=== PATIENT | female | born 1930 | race Caucasian/White ===

== ENCOUNTER 2016-12-15 08:06 | Outpatient (CLI) | payer MEDICARE ==
[2016-12-15 08:29] LABS: #Basophils 0.1 thou/uL (0.0-0.2); #Eosinphils 0.3 thou/uL (0.0-0.7); #Lymphocytes 2.4 thou/uL (1.20-3.40); #Monocytes 0.4 thou/uL (0.11-0.59); %Basophils 1.3 % (0.0-1.0); %Eosinophils 5.7 % (0.0-10.0); %Lymphocytes 47.2 % (21.0-51.0); %Neutrophils 38.9 % (42.0-75.0); Hemoglobin 13.4 g/dL (12.0-16.0); Mean Corpuscular HGB CONC 32.9 g/dL (32.0-36.0); Mean Corpuscular Hemoglobin 29.6 pg (27.0-31.0); Mean Corpuscular Volume 90.1 fl (81.0-99.0); Mean Platelet Volume 6.8 fL (7.4-10.4); Platelet Count 208 thou/uL (130-400); RBC Distribution Width 11.9 % (11.5-14.5); Red Blood Cell (RBC) Count 4.53 mill/uL (4.20-5.40); White Blood Cell (WBC) Count 5.1 thou/uL (4.8-10.8)
[2016-12-15 08:40] LABS: Hemoglobin A1c 5.4 % (4.0-6.0)
[2016-12-15 08:57] LABS: ALT (SGPT) 7 U/L (0-55); AST (SGOT) 13 U/L (5-34); Albumin 4.1 g/dL (3.4-4.8); Alkaline Phosphatase 104 U/L (40-150); Anion Gap 13 mmol/L (10-20); BUN (Urea Nitrogen) 15 mg/dL (9.8-20.1); Bilirubin, Direct 0.3 mg/dL (0.1-0.3); Bilirubin, Total 0.8 mg/dL (0.2-1.2); Calc. Creatinine Clearance 0 mL/min (70-130); Calcium 9.7 mg/dL (7.8-10.44); Carbon Dioxide 28 mmol/L (23-31); Cardiac Risk 3.6 (Less than 4.5); Chloride 106 mmol/L (98-107); Cholesterol 207 mg/dL (< 200 Desired); Estimated GFR-MDRD 69; Glucose 100 mg/dL (83-110); HDL Cholesterol 57 mg/dL (>60 Neg Risk); LDL Cholesterol, Calculated 133 mg/dL; Potassium 4.2 mmol/L (3.5-5.1); Protein, Total 7.1 g/dL (5.8-8.1); Sodium 143 mmol/L (136-145); Triglycerides 86 mg/dL (Less than 150)
== END 2016-12-15 08:07 ==
LOC: MADLABBHPM 08:06
PROVIDERS: ATTEND Family Medicine
DX: E11.9 Type 2 diabetes mellitus without complications (principal)
CPT/HCPCS: 36415; 80048; 80061; 80076; 83036; 85025

== ENCOUNTER 2017-03-24 07:59 | Outpatient (CLI) | payer MEDICARE ==
[2017-03-24 08:45] LABS: ALT (SGPT) 8 U/L (8-55); AST (SGOT) 14 U/L (5-34); Albumin 3.7 g/dL (3.4-4.8); Alkaline Phosphatase 96 U/L (40-150); Anion Gap 16 mmol/L (10-20); BUN (Urea Nitrogen) 18 mg/dL (9.8-20.1); Bilirubin, Direct 0.3 mg/dL (0.1-0.3); Bilirubin, Total 0.8 mg/dL (0.2-1.2); Calc. Creatinine Clearance 0 mL/min (70-130); Calcium 9.2 mg/dL (7.8-10.44); Carbon Dioxide 23 mmol/L (23-31); Cardiac Risk 3.9 (Less than 4.5); Chloride 106 mmol/L (98-107); Cholesterol 199 mg/dl (< 200 Desired); Estimated GFR-MDRD 68; Glucose 99 mg/dL (83-110); HDL Cholesterol 51 mg/dL (>60 Neg Risk); LDL Cholesterol, Calculated 129 mg/dL; Protein, Total 6.7 g/dL (6.0-8.3); Sodium 141 mmol/L (136-145); Triglycerides 96 mg/dL (Less than 150)
== END 2017-03-24 08:00 | disposition home or self-care (01) ==
LOC: MADLABBHPM 07:59
PROVIDERS: ATTEND Family Medicine
DX: I10 Essential (primary) hypertension (principal)
CPT/HCPCS: 36415; 80048; 80061; 80076

== ENCOUNTER 2017-10-11 09:03 | Emergency (ER) | payer MEDICARE ==
--- NOTE | 2017-10-11 10:23 | RAD ---
EXAM: LEFT RIBS 2 VIEWS: HISTORY: Left-sided pain, due to fall several days ago. History of Parkinson's disease. COMPARISON: None. FINDINGS: Mild bone demineralization. No fracture. No cortical irregularity or periosteal reaction. IMPRESSION: No fracture. POS: [facility]
--- NOTE | 2017-10-11 10:24 | RAD ---
CHEST 1 VIEW: HISTORY: Pain. Fall several days ago. COMPARISON: None. FINDINGS: Normal cardiac silhouette. The pulmonary vessels and hilum are normal. Costophrenic angles are sanchez r. No consolidation or mass. No pneumothorax or osseous abnormalities. IMPRESSION: No acute cardiopulmonary process. POS: [facility]
== END 2017-10-11 10:10 | disposition home or self-care (01) ==
LOC: MADERS 09:03
DX: R07.89 Other chest pain (principal); I10 Essential (primary) hypertension; E11.9 Type 2 diabetes mellitus without complications; E78.5 Hyperlipidemia, unspecified; Z79.82 Long term (current) use of aspirin; Z79.899 Other long term (current) drug therapy
CPT/HCPCS: 71045

== ENCOUNTER 2018-02-23 11:27 | Outpatient (CLI) | payer MEDICARE ==
--- NOTE | 2018-02-23 13:34 | RAD ---
RIGHT HIP 2 VIEWS: Date: 02/23/18 HISTORY: Fall. Right hip pain. Prior fracture. FINDINGS: Compression nail and short lakesha transfix the right femoral neck, in anatomic alignment. No perihardwar e lucency. Moderate degenerative changes. No acute fracture or dislocation. IMPRESSION: Internal fixation right hip without evidence of hardware complication or acute osseous abnormalities. POS: [facility]
== END 2018-02-23 11:28 | disposition home or self-care (01) ==
LOC: MADRAD 11:27
PROVIDERS: ATTEND Family Medicine
DX: M25.551 Pain in right hip (principal); Z98.890 Other specified postprocedural states

== ENCOUNTER 2018-06-21 20:33 | Emergency (ER) | payer MEDICARE ==
[~2018-06-21 20:33] MED LIST: Sodium Chloride 0.9% 500 ML BAG ONE
[2018-06-21] MEDS ORDERED: Ondansetron HCl/PF 4 MG/2 ML Vial ONE (21:08)
[2018-06-21 21:28] LABS: Bilirubin Negative (Negative); Blood, Urine Trace (Negative); Clarity Clear (Clear); Glucose, Urine (Dipstick) Negative (Negative); Leukocyte Small (Negative); Nitrite Negative (Negative); Protein, Urine (Dipstick) Negative (Neg-Trace); Specific Gravity, Urine 1.025 (1.005-1.030); Urobilinogen 0.2 mg/dL (0.2-1.0); pH, Urine 5.5 (5.0-9.0)
[2018-06-21 21:34] LABS: #Eosinphils 0.1 thou/uL (0.0-0.7); #Lymphocytes 1.7 thou/uL (1.20-3.40); #Monocytes 0.5 thou/uL (0.11-0.59); #Neutrophils 4.7 thou/uL (1.40-6.50); %Basophils 0.5 % (0.0-1.0); %Eosinophils 1.3 % (0.0-10.0); %Lymphocytes 24.3 % (21.0-51.0); %Monocytes 7.7 % (0.0-10.0); %Neutrophils 66.2 % (42.0-75.0); Hemoglobin 12.7 g/dL (12.0-16.0); Mean Corpuscular HGB CONC 32.9 g/dL (32.0-36.0); Mean Corpuscular Volume 91.1 fL (78.0-98.0); Mean Platelet Volume 6.4 fL (7.4-10.4); Platelet Count 203 thou/uL (130-400); RBC Distribution Width 11.1 % (11.5-14.5); Red Blood Cell (RBC) Count 4.24 mill/uL (4.20-5.40); White Blood Cell (WBC) Count 7.1 thou/uL (4.8-10.8)
[2018-06-21 21:37] LABS: Bacteria/HPF 1+ HPF (None Seen)
[2018-06-21 21:52] LABS: ALT (SGPT) Less than 7 U/L (8-55); AST (SGOT) 12 U/L (5-34); Albumin 4.1 g/dL (3.4-4.8); Alkaline Phosphatase 95 U/L (40-150); Anion Gap 15 mmol/L (10-20); BUN (Urea Nitrogen) 18 mg/dL (9.8-20.1); Bilirubin, Total 0.6 mg/dL (0.2-1.2); Calc. Creatinine Clearance 0 mL/min (70-130); Calcium 9.5 mg/dL (7.8-10.44); Carbon Dioxide 24 mmol/L (23-31); Chloride 107 mmol/L (98-107); Estimated GFR-MDRD 63; Globulin 3.1 g/dL (2.4-3.5); Glucose 155 mg/dL (83-110); Lipase 12 U/L (8-78); Potassium 3.9 mmol/L (3.5-5.1); Protein, Total 7.2 g/dL (6.0-8.3); Sodium 142 mmol/L (136-145)
[2018-06-21] MEDS ORDERED: Cephalexin 500 MG CAP ONE (22:14)
== END 2018-06-21 22:43 | disposition home or self-care (01) ==
LOC: MADERS 20:33
DX: E86.0 Dehydration (principal); I10 Essential (primary) hypertension; G20 Parkinson's disease; E11.9 Type 2 diabetes mellitus without complications; E78.5 Hyperlipidemia, unspecified; Z79.82 Long term (current) use of aspirin; Z79.891 Long term (current) use of opiate analgesic; Z79.899 Other long term (current) drug therapy
CPT/HCPCS: 80053; 81003; 81015; 83690; 85025; 93005; 96361; 96374; J2405; J7050

== ENCOUNTER 2018-06-27 04:30 | Emergency (ER) | payer MEDICARE ==
[2018-06-27] MEDS ORDERED: Dexamethasone 4 MG TAB ONE (06:26)
--- NOTE | 2018-06-27 08:33 | RAD ---
PORTABLE CHEST: History: Cough. FINDINGS: Lungs appear clear. No evidence of infiltrate or vascular congestion. Heart and mediastinum unremarka ble. IMPRESSION: No acute abnormality. POS: [facility]
== END 2018-06-27 06:35 | disposition home or self-care (01) ==
LOC: MADERS 04:30
DX: J40 Bronchitis, not specified as acute or chronic (principal); G20 Parkinson's disease; E11.9 Type 2 diabetes mellitus without complications; E78.5 Hyperlipidemia, unspecified; I10 Essential (primary) hypertension
CPT/HCPCS: 71045; 93005; J8540

== ENCOUNTER 2018-07-04 08:50 | Emergency (ER) | payer MEDICARE ==
[2018-07-04 09:32] LABS: #Basophils 0.1 thou/uL (0.0-0.2); #Eosinphils 0.2 thou/uL (0.0-0.7); #Lymphocytes 2.1 thou/uL (1.20-3.40); #Monocytes 0.5 thou/uL (0.11-0.59); %Eosinophils 2.3 % (0.0-10.0); %Lymphocytes 26.3 % (21.0-51.0); %Monocytes 6.8 % (0.0-10.0); %Neutrophils 63.7 % (42.0-75.0); Hemoglobin 12.6 g/dL (12.0-16.0); Mean Corpuscular HGB CONC 33.1 g/dL (32.0-36.0); Mean Corpuscular Volume 90.7 fL (78.0-98.0); Mean Platelet Volume 6.3 fL (7.4-10.4); Platelet Count 286 thou/uL (130-400); RBC Distribution Width 11.4 % (11.5-14.5); Red Blood Cell (RBC) Count 4.19 mill/uL (4.20-5.40); White Blood Cell (WBC) Count 7.9 thou/uL (4.8-10.8)
[2018-07-04 09:43] LABS: Bilirubin Negative (Negative); Blood, Urine Negative (Negative); Clarity Clear (Clear); Glucose, Urine (Dipstick) Negative (Negative); Leukocyte Negative (Negative); Nitrite Negative (Negative); Protein, Urine (Dipstick) Negative (Neg-Trace); Specific Gravity, Urine 1.025 (1.005-1.030); Urobilinogen 0.2 mg/dL (0.2-1.0)
[2018-07-04 09:44] LABS: ALT (SGPT) Less than 7 U/L (8-55); AST (SGOT) 13 U/L (5-34); Albumin 3.9 g/dL (3.4-4.8); Alkaline Phosphatase 100 U/L (40-150); Anion Gap 15 mmol/L (10-20); BUN (Urea Nitrogen) 19 mg/dL (9.8-20.1); Bilirubin, Total 0.6 mg/dL (0.2-1.2); Calc. Creatinine Clearance 0 mL/min (70-130); Calcium 9.2 mg/dL (7.8-10.44); Carbon Dioxide 22 mmol/L (23-31); Chloride 108 mmol/L (98-107); Estimated GFR-MDRD 65; Glucose 197 mg/dL (83-110); Potassium 4.9 mmol/L (3.5-5.1); Protein, Total 6.9 g/dL (6.0-8.3); Sodium 140 mmol/L (136-145)
[2018-07-04 09:50] LABS: CKMB 1.1 ng/mL (0-6.6); Troponin I Less than 0.010 ng/mL (< 0.028)
--- NOTE | 2018-07-04 10:35 | RAD ---
CHEST ONE VIEW: Comparison: 06-27-18 History: Cough. Dyspnea. FINDINGS: Normal cardiac silhouette. There is atherosclerosis of the aortic knob. The pulmonary vessels and hil um are normal. Costophrenic angles are clear. No consolidation or mass. Linear opacity in the right l dana base likely represents subsegmental atelectasis. No pneumothorax or osseous abnormality. IMPRESSION: 1. Atherosclerosis. 2. Subsegmental atelectasis in the right lower lobe. POS: [facility]
== END 2018-07-04 10:35 | disposition home or self-care (01) ==
LOC: MADERS 08:50
DX: J18.9 Pneumonia, unspecified organism (principal); I10 Essential (primary) hypertension; G20 Parkinson's disease; E11.9 Type 2 diabetes mellitus without complications; E78.5 Hyperlipidemia, unspecified; Z79.899 Other long term (current) drug therapy; Z79.82 Long term (current) use of aspirin
CPT/HCPCS: 51701; 71045; 80053; 81003; 82553; 83605; 83880; 84484; 85025; 87040; 93005; 94760; 94799; A4353

== ENCOUNTER 2018-09-28 21:44 | Emergency (ER) | payer MEDICARE ==
[2018-09-28] MEDS ORDERED: Sodium Chloride 0.9% 1,000 ML ONE (22:12)
[2018-09-28 22:48] LABS: #Basophils 0.1 thou/uL (0.0-0.2); #Eosinphils 0.1 thou/uL (0.0-0.7); #Lymphocytes 1.6 thou/uL (1.20-3.40); #Monocytes 0.4 thou/uL (0.11-0.59); #Neutrophils 3.3 thou/uL (1.40-6.50); %Basophils 1.2 % (0.0-1.0); %Eosinophils 1.5 % (0.0-10.0); %Lymphocytes 29.8 % (21.0-51.0); %Monocytes 7.4 % (0.0-10.0); Hemoglobin 12.1 g/dL (12.0-16.0); Mean Corpuscular HGB CONC 33.2 g/dL (32.0-36.0); Mean Corpuscular Hemoglobin 30.2 pg (27.0-31.0); Mean Corpuscular Volume 91.1 fL (78.0-98.0); Mean Platelet Volume 7.1 fL (7.4-10.4); Platelet Count 231 thou/uL (130-400); RBC Distribution Width 11.7 % (11.5-14.5); Red Blood Cell (RBC) Count 4.01 mill/uL (4.20-5.40); White Blood Cell (WBC) Count 5.5 thou/uL (4.8-10.8)
--- NOTE | 2018-09-28 23:08 | RAD ---
UPRIGHT PORTABLE CHEST ONE VIEW: 09/28/18 HISTORY: 88-year-old female with weakness. COMPARISON: 07/04/18. FINDINGS: Heart size is within normal limits. Minimal linear increased markings bilaterally, stable. Diffuse breanna ne demineralization. No confluent pneumonia, overt edema, or pleural effusions. IMPRESSION: No acute intrathoracic disease. Mild stable chronic changes. Bone demineralization. POS: [facility]
[2018-09-28 23:09] LABS: ALT (SGPT) Less than 7 U/L (8-55); AST (SGOT) 15 U/L (5-34); Albumin 3.9 g/dL (3.4-4.8); Alkaline Phosphatase 93 U/L (40-150); Anion Gap 15 mmol/L (10-20); BUN (Urea Nitrogen) 23 mg/dL (9.8-20.1); Bilirubin, Total 0.7 mg/dL (0.2-1.2); Calc. Creatinine Clearance 0 mL/min (70-130); Calcium 9.2 mg/dL (7.8-10.44); Carbon Dioxide 22 mmol/L (23-31); Chloride 108 mmol/L (98-107); Estimated GFR-MDRD 60; Globulin 2.7 g/dL (2.4-3.5); Glucose 259 mg/dL (83-110); Potassium 4.1 mmol/L (3.5-5.1); Protein, Total 6.6 g/dL (6.0-8.3); Sodium 141 mmol/L (136-145)
--- NOTE | 2018-09-28 23:24 | CT ---
BRAIN CT WITHOUT IV CONTRAST: 09/28/18 HISTORY: Weakness. COMPARISON: 05/05/16. FINDINGS: There is bilateral atrophy and chronic white matter ischemic change. No focal mass or midline shift. No intra or extra-axial hemorrhage. Sinuses and mastoids are clear of acute process. IMPRESSION: No mass, bleed or other acute process. POS: [facility]
[2018-09-28 23:29] LABS: Bilirubin Negative (Negative); Blood, Urine Negative (Negative); Clarity Clear (Clear); Glucose, Urine (Dipstick) Negative (Negative); Leukocyte Negative (Negative); Nitrite Negative (Negative); Protein, Urine (Dipstick) Negative (Neg-Trace); Specific Gravity, Urine 1.025 (1.005-1.030); pH, Urine 5.5 (5.0-9.0)
== END 2018-09-29 00:19 | disposition short-term general hospital (02) ==
LOC: MADERS 21:44
DX: R53.1 Weakness (principal); Z86.73 Personal history of transient ischemic attack (TIA), and cerebral infarction without residual deficits; I10 Essential (primary) hypertension; G20 Parkinson's disease; Z79.82 Long term (current) use of aspirin; Z79.899 Other long term (current) drug therapy
CPT/HCPCS: 70450; 71045; 80053; 81003; 83880; 84484; 85025; 93005; 94760; 96360; A4353; J7050

== ENCOUNTER 2019-09-30 17:15 | Emergency (ER) | payer MEDICARE ==
--- NOTE | 2019-09-30 17:38 | RAD ---
Exam: Chest one view HISTORY:Fall. Pain. Injury. Comparison: 09/28/2018 FINDINGS: Cardiac silhouette: Normal Aorta: Unremarkable Pulmonary vessels: Normal Costophrenic angles: Clear LUNGS: No masses or consolidation. Chronic lung parenchymal changes. Pneumothorax: None Osseous abnormalities: No acute osseous abnormality. IMPRESSION: No acute cardiopulmonary process.
[2019-09-30 17:56] LABS: #Basophils 0.1 thou/uL (0.0-0.2); #Eosinphils 0.2 thou/uL (0.0-0.7); #Lymphocytes 1.9 thou/uL (1.20-3.40); #Monocytes 0.6 thou/uL (0.11-0.59); #Neutrophils 5.8 thou/uL (1.40-6.50); %Basophils 0.8 % (0.0-1.0); %Eosinophils 2.1 % (0.0-10.0); %Monocytes 7.3 % (0.0-10.0); %Neutrophils 67.8 % (42.0-75.0); Hemoglobin 12.6 g/dL (12.0-16.0); Mean Corpuscular Hemoglobin 28.6 pg (27.0-31.0); Mean Corpuscular Volume 92.4 fL (78.0-98.0); Mean Platelet Volume 6.3 fL (7.4-10.4); Platelet Count 284 thou/uL (130-400); RBC Distribution Width 12.1 % (11.5-14.5); Red Blood Cell (RBC) Count 4.39 mill/uL (4.20-5.40); White Blood Cell (WBC) Count 8.6 thou/uL (4.8-10.8)
[2019-09-30 17:58] LABS: INR-International Normal Ratio 0.9; Prothrombin Time 11.9 SEC (12.0-14.7)
[2019-09-30 18:06] LABS: ALT (SGPT) 8 U/L (8-55); AST (SGOT) 10 U/L (5-34); Albumin 3.9 g/dL (3.4-4.8); Alkaline Phosphatase 96 U/L (40-110); Anion Gap 15 mmol/L (10-20); BUN (Urea Nitrogen) 20 mg/dL (9.8-20.1); Bilirubin, Total 0.6 mg/dL (0.2-1.2); Calc. Creatinine Clearance 0 mL/min (70-130); Calcium 9.4 mg/dL (7.8-10.44); Carbon Dioxide 23 mmol/L (23-31); Chloride 110 mmol/L (98-107); Estimated GFR-MDRD 70; Globulin 3.1 g/dL (2.4-3.5); Glucose 130 mg/dL (83-110); Potassium 4.2 mmol/L (3.5-5.1); Sodium 144 mmol/L (136-145)
--- NOTE | 2019-09-30 18:23 | RAD ---
Right wrist 3 views HISTORY: Fall. Wrist injury. FINDINGS: Scaphoid waist and ulnar styloid are intact. Joint space narrowing, osteophytosis, and subc hondral sclerosis of the first carpometacarpal joint with partial collapse of the articular surface of the trapezium. No acute fracture, dislocation, or aggressive osseous erosions. IMPRESSION: Prominent OsteoArthritic changes of the first carpometacarpal joint. No acute osseous abn ormalities are demonstrated.
--- NOTE | 2019-09-30 18:28 | RAD ---
Right knee 4 views HISTORY: Fall. Right knee pain. FINDINGS: Osseous structures are demineralized. Mild osteophytosis about the knee. No acute fracture or dislocation evident. Small osteochondroma projecting posteriorly from the proximal fibula. Minimal fluid within the suprapatellar bursa. IMPRESSION: No acute osseous abnormalities are demonstrated. Mild osteoarthritic changes. Small joint effusion.
--- NOTE | 2019-09-30 19:13 | RAD ---
FOUR VIEWS RIGHT KNEE: History: Fall, pain. FINDINGS: Diffuse bone demineralization. Mild tricompartmental degenerative change. No fracture, cortical irreg ularity or periosteal reaction. No joint effusion. IMPRESSION: No fracture. POS: [facility]
--- NOTE | 2019-09-30 19:15 | RAD ---
TWO VIEWS RIGHT HIP: Comparison: 02-23-18 History: Fall, pain. FINDINGS: Based on images provided, the stem of the intramedullary nail is not included on the frog-leg lateral projection. There does not appear to be any perihardware lucency. There appears to be irregularity w ith regards to the contour of the femoral head. If there is concern for femoral head fracture, consid er CT. There is moderate degenerative change in the right hip joint space. Visualized bony pelvis is intact. IMPRESSION: 1. Irregularity involving the femoral head which may be due to remote trauma. If there is concern, co nsider CT. 2. Nonvisualization of the stem of the intramedullary lakesha on the frog-leg lateral projection. POS: [facility]
== END 2019-09-30 20:30 | disposition home or self-care (01) ==
LOC: MADERS 17:15
DX: S63.501A Unspecified sprain of right wrist, initial encounter (principal); S80.02XA Contusion of left knee, initial encounter; S80.01XA Contusion of right knee, initial encounter; I10 Essential (primary) hypertension; Z86.73 Personal history of transient ischemic attack (TIA), and cerebral infarction without residual deficits; G20 Parkinson's disease; Z87.891 Personal history of nicotine dependence; W18.30XA Fall on same level, unspecified, initial encounter
CPT/HCPCS: 36415; 71045; 80053; 83880; 84484; 85025; 85610; 93005

== ENCOUNTER 2019-10-27 16:37 | Emergency (ER) | payer MEDICARE ==
--- NOTE | 2019-10-27 17:21 | RAD ---
XR Knee Rt 4 View STANDARD HISTORY: Fall, right knee pain FINDINGS: No dislocation is identified. There is a questionable fracture involving the lateral tibial plateau.
--- NOTE | 2019-10-27 17:31 | RAD ---
LEFT ANKLE THREE VIEWS: History: Injury, left ankle pain. FINDINGS: The ankle mortise is maintained. No acute fracture or dislocation is identified. The ankle mortise is maintained. There are plantar and posterior calcaneal spurs. There is heterotropic ossification in t he region of the posterior aspect of the plantar aponeurosis. POS: [facility]
== END 2019-10-27 19:59 | disposition short-term general hospital (02) ==
LOC: MADERS 16:37
DX: S82.141A Displaced bicondylar fracture of right tibia, initial encounter for closed fracture (principal); I10 Essential (primary) hypertension; Z79.82 Long term (current) use of aspirin; Z79.899 Other long term (current) drug therapy; Z86.73 Personal history of transient ischemic attack (TIA), and cerebral infarction without residual deficits; W19.XXXA Unspecified fall, initial encounter; Y92.009 Unspecified place in unspecified non-institutional (private) residence as the place of occurrence of the external cause

== ENCOUNTER 2019-10-29 18:47 | Inpatient (IN) | payer MEDICARE ==
[2019-10-29] MEDS ORDERED: Cephalexin 500 MG CAP PO SCH (21:45)
[2019-10-29] MEDS ORDERED: Aspirin 81 mg Enteric Coated Tablet PO SCH (21:45)
[2019-10-29] MEDS: Ondansetron ODT 4 MG TAB PO PRN (22:05)
[2019-10-30] MEDS: Polyethylene Glycol 3350 17 GM Packet PO SCH (08:04)
[2019-10-30] MEDS: Lisinopril 20 MG TAB PO SCH (08:04)
[2019-10-30] MEDS: Aspirin 81 mg Enteric Coated Tablet PO SCH ×2 (08:04→20:44)
[2019-10-30] MEDS: Carbidopa/Levodopa 25-100 mg Tablet PO SCH ×3 (08:04→20:44)
[2019-10-30] MEDS ORDERED: Cephalexin 500 MG CAP PO SCH (09:00)
--- NOTE | 2019-10-30 12:33 | HP ---
Admitted to [facility] on the evening of 10/29/2019. CHIEF COMPLAINT: Weakness and nonambulatory following a right lateral tibial plateau fracture. HISTORY OF PRESENT ILLNESS: The patient is an 89-year-old white female, who lives at home where her son and [id number] assist her and help her with her ADLs. She is able to walk a few steps with assistance only. 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 The patient was hospitalized at [facility] on 10/28/2019 after a mechanical fall. She said she was being helped by grandson walking a few steps and tripped and fell. She is detained. She sustained a right lateral tibial plateau fracture with minimal displacement. She was seen in consultation by orthopedic surgeon, Kevan Bowers, who recommended nonsurgical management. He has placed her in a hinged knee brace with 20 degrees of flexion. She is at nonweightbearing. She was transferred to [facility] on the evening of 10/29/2019 for purpose of physical therapy and occupational therapy. She is to remain in the knee brace and nonweightbearing on that right leg. The patient was seen early on the morning of 10/30 and was able to review with me history of what happened. PAST MEDICAL HISTORY: Hospitalized at [facility] from 10/28/2019 to 10/29/2019 for mechanical fall resulting in a minimally displaced fracture of the right lateral tibial plateau that is being managed nonoperatively with nonweightbearing in a knee immobilizer. 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 Whatley. Recent bronchitis for which she has been on levofloxacin that was started on 10/25/2019. Hypercholesterolemia. The patient has had a cholecystectomy, CHRISTOPHER and BSO. Depression. CVA that has left her with a left hemiparalysis. She has also had an appendectomy. PRESENT MEDICATIONS: 1. Acetaminophen 325 mg two every 4 hours as needed. 2. Aspirin 81 mg b.i.d. 3. Sinemet 25/100 one t.i.d. 4. Fluticasone two sprays in each nares daily as needed for congestion. 5. Ibuprofen 200 mg two every 8 hours as needed. 6. Levothyroxine 500 mcg started on 10/26/2019 and will complete in 10 days for bronchitis. 7. Lisinopril 20 mg daily. 8. Metformin 500 mg at bedtime. 9. Senokot-S one b.i.d. as needed. 10. MiraLAX 17 g in 8 ounces of water daily. 11. Tramadol every 6 hours as needed for pain. ALLERGIES: Zopiden, IODINE, DOXYCYCLINE, AND PENICILLIN, BUT HAS BEEN ABLE TO TAKE CEPHALEXIN RECENTLY FOR UTI THAT SHE HAS COMPLETED. REVIEW OF SYSTEMS: GENERAL: The patient says she is just weak, not able to walk after this fracture. Prior to the fall, she was able to walk a few steps with help. HEAD AND NECK: No complaints. PULMONARY: No shortness of breath. Her bronchitis is improving. CARDIOVASCULAR: No chest pain. GI: No complaints. ADLs: The patient requires assistance with all her ADLs. HABITS: Alcohol, none. Tobacco, none. SOCIAL HISTORY: The patient is . Lives at home with her son and [id number] who assist her with all her ADLs and instrumental ADLs. CODE STATUS: Full code. PHYSICAL EXAMINATION: GENERAL: Shows a very pleasant 89-year-old white female, who is lying in bed. She is alert and talkative, recognizes me and appears in no acute distress. VITAL SIGNS: Her temp is 97.7, pulse 80, respirations 16, O2 saturation 95% on room air, blood pressure 161/94, weight 125. HEAD: Normocephalic and atraumatic. EYES: Pupils are equal, round, and reactive. EARS: TMs are clear. NOSE: Normal. MOUTH AND THROAT: Normal. NECK: Carotids are equal and strong. No bruits. Thyroid not enlarged. LUNGS: Clear. HEART: Regular rate. No murmurs. ABDOMEN: Soft. No organomegaly. No areas of tenderness. EXTREMITIES: Lower extremities, no edema. Her right leg is in a long-leg knee immobilizer that is hinge and set at 20 degrees of motion. The knee has no effusion. NEUROLOGIC: The patient is alert. Knows she is in the hospital. Recognizes me and understand she had fractured her leg. She has a left hemiparalysis with contracture of the left elbow, shoulder, and wrist and fingers. She has weakness in the left lower leg. She has resting tremors in the hands. There is slowness of movement in the right hand. IMPRESSION: 1. Generalized weakness, presently not ambulatory. a. Following a fall with fracture of the right lateral tibial plateau. b. No weightbearing on the right leg. 2. Closed, minimally displaced fracture of the right lateral tibial plateau. a. Secondary to mechanical fall on 10/28/2019. b. Managed with a knee immobilizer. No weightbearing. 3. History of cerebrovascular accident. a. Leaving her with left hemiparalysis and contracture of the left upper extremity. b. Requires assistance with all her ADLs. 4. Parkinson disease. 5. Hypertension. 6. Diabetes type 2. 7. Bronchitis. a. Resolving. We will complete 10-day course of Levaquin on 11/02. 8. Constipation. PLAN: The patient has been admitted to [facility]. She is presently in a knee immobilizer, which she will need to continue and she has had no weightbearing on that right leg. Will need to follow up with her orthopedic surgeon, Dr. Bowers. PT and OT will work with her. We will continue her present medicines , see orders. Job ID: [id number] [facility]TD[facility]
[2019-10-30] MEDS: Ibuprofen 400 MG TAB PO PRN (15:27)
[2019-10-30] MEDS: Acetaminophen 325 MG TAB PO PRN (20:44)
[2019-10-30] MEDS: metFORMIN 500 MG TAB PO SCH (20:44)
[2019-10-31 05:17] LABS: #Basophils 0.1 thou/uL (0.0-0.2); #Eosinphils 0.2 thou/uL (0.0-0.7); #Lymphocytes 1.6 thou/uL (1.20-3.40); #Monocytes 0.5 thou/uL (0.11-0.59); #Neutrophils 3.9 thou/uL (1.40-6.50); %Basophils 1.1 % (0.0-1.0); %Eosinophils 2.4 % (0.0-10.0); %Lymphocytes 24.9 % (21.0-51.0); %Monocytes 8.5 % (0.0-10.0); Hemoglobin 12.2 g/dL (12.0-16.0); Mean Corpuscular Hemoglobin 29.2 pg (27.0-31.0); Mean Corpuscular Volume 91.2 fL (78.0-98.0); Mean Platelet Volume 6.5 fL (7.4-10.4); Platelet Count 299 thou/uL (130-400); RBC Distribution Width 12.2 % (11.5-14.5); Red Blood Cell (RBC) Count 4.18 mill/uL (4.20-5.40); White Blood Cell (WBC) Count 6.2 thou/uL (4.8-10.8)
[2019-10-31 05:33] LABS: Anion Gap 17 mmol/L (10-20); BUN (Urea Nitrogen) 21 mg/dL (9.8-20.1); Calc. Creatinine Clearance 45 mL/min (70-130); Carbon Dioxide 24 mmol/L (23-31); Chloride 105 mmol/L (98-107); Estimated GFR-MDRD 69; Glucose 140 mg/dL (83-110); Potassium 4.5 mmol/L (3.5-5.1); Sodium 141 mmol/L (136-145)
[2019-10-31] MEDS: Ibuprofen 400 MG TAB PO PRN (05:39)
--- NOTE | 2019-10-31 08:58 | PRG ---
DATE OF SERVICE: 10/31/2019 SUBJECTIVE: The patient was noted to be having a lot of coughing with her eating. Speech Therapy saw her and is trying her on a blended diet with nectar thickened liquids and see how she does. The patient had no complaint this morning. OBJECTIVE: GENERAL: The patient is lying in bed, alert, talkative, and appears comfortable. VITAL SIGNS: Temperature 97.4, pulse 91, respirations 16, O2 saturation 98% on room air, and blood pressure 171/87. LUNGS: Clear. HEART: Regular rate. EXTREMITIES: The patient has a knee immobilizer over the left leg. The knee has no effusion. LABORATORY DATA: H and H are 12.2 and 38.1, white cell count 6200, with a platelet count of 299. Sodium 141, potassium 4.5, BUN 21, creatinine 0.79, GFR 69, and glucose 140. ASSESSMENT: 1. Generalized weakness. a. Presently nonambulatory. b. Following a fall with fracture of the right lateral tibial plateau. c. No weightbearing on the right leg. 2. Closed, minimally displaced fracture of the right lateral tibial plateau. a. Secondary to mechanical fall on 10/28/2019. b. Managed with a knee immobilizer. No weightbearing. 3. History of cerebrovascular accident. a. Leaving the patient with a left hemiparalysis with contractures of the upper extremity. b. Requires assistance with all ADLs. 4. Parkinson disease. 5. Hypertension. 6. Diabetes type 2. 7. Bronchitis, resolving. 8. Constipation. PLAN: Continue present care. Continue PT and OT. Job ID: [id number] MTDD
[2019-10-31] MEDS: Lisinopril 20 MG TAB PO SCH (09:21)
[2019-10-31] MEDS: Aspirin 81 mg Enteric Coated Tablet PO SCH ×2 (09:22→21:44)
[2019-10-31] MEDS: Polyethylene Glycol 3350 17 GM Packet PO SCH (09:22)
[2019-10-31] MEDS: Acetaminophen 325 MG TAB PO PRN (09:22)
[2019-10-31] MEDS: Carbidopa/Levodopa 25-100 mg Tablet PO SCH ×3 (09:22→21:44)
[2019-10-31] MEDS: Senokot S 8.6-50 MG TAB PO PRN (14:37)
[2019-10-31] MEDS: metFORMIN 500 MG TAB PO SCH (21:44)
[2019-11-01] MEDS: Aspirin 81 mg Enteric Coated Tablet PO SCH ×2 (08:32→21:06)
[2019-11-01] MEDS: Carbidopa/Levodopa 25-100 mg Tablet PO SCH ×3 (08:32→21:06)
[2019-11-01] MEDS: Polyethylene Glycol 3350 17 GM Packet PO SCH (08:32)
[2019-11-01] MEDS: Lisinopril 20 MG TAB PO SCH (08:32)
--- NOTE | 2019-11-01 12:20 | PRG ---
DATE OF SERVICE: 11/01/2019 SUBJECTIVE: The patient states she is doing better, she is not coughing. I think her bronchitis is resolving. The speech therapist had seen the patient and had suggested a trial of nectar thickened liquids and a pureed diet. She just would not take this. She has not had any definite evidence of aspiration. Visited with the speech therapist and the patient said she would not drink the thickened liquids. We will place the patient on a mechanical soft diet with ground meat and regular thin liquids and then coached her on proper eating techniques and she is very happy with this. We will see how she does with this diet. OBJECTIVE: GENERAL: The patient is lying in bed, alert, smiling, appears very comfortable. VITAL SIGNS: Her temperature is 96.9, pulse 97, respirations 18, O2 saturation 99% on room air, blood pressure 144/80. LUNGS: Clear. HEART: Regular rate. EXTREMITIES: The patient is wearing a long-leg metal knee immobilizer with 0-20 degrees of motion. There is no effusion. The patient looks very comfortable. ASSESSMENT: 1. Generalized weakness. a. Presently nonambulatory. b. Following a fall with a fracture of the right lateral tibial plateau. c. No weightbearing on the right leg. 2. Closed, minimally displaced fracture of the right lateral tibial plateau. a. Secondary to a mechanical fall on 10/28/2019. b. Managed with a knee immobilizer. No weightbearing. 3. History of cerebrovascular accident. a. Leaving the patient with a left hemiparalysis with contractures of the upper extremities. b. Requires assistance with all her ADLs. 4. Parkinson disease. 5. Hypertension. 6. Diabetes type 2. 7. Bronchitis, resolving. 8. Constipation, controlled. PLAN: I have switched the patient back to a mechanical soft diet with ground meat, thin liquids. Coaching the patient, eating should be done upright, small bites. Continue PT, OT. Continue no weightbearing on the right leg. [facility] ID: [id number] [facility]
[2019-11-01] MEDS: metFORMIN 500 MG TAB PO SCH (21:06)
[2019-11-02] MEDS: traMADol HCl 50 MG TAB PO PRN ×2 (03:14→11:07)
[2019-11-02] MEDS: Lisinopril 20 MG TAB PO SCH (09:02)
[2019-11-02] MEDS: Polyethylene Glycol 3350 17 GM Packet PO SCH ×2 (09:02→09:05)
[2019-11-02] MEDS: Carbidopa/Levodopa 25-100 mg Tablet PO SCH ×3 (09:02→21:01)
[2019-11-02] MEDS: Aspirin 81 mg Enteric Coated Tablet PO SCH ×2 (09:02→21:01)
[2019-11-02] MEDS: Fluticasone Propionate Nasal Spray 16 gm Bottle NASAL PRN (09:02)
[2019-11-02] MEDS: Melatonin 3 MG TAB PO PRN (21:02)
[2019-11-02] MEDS: metFORMIN 500 MG TAB PO SCH (21:02)
[2019-11-03] MEDS: traMADol HCl 50 MG TAB PO PRN ×3 (04:31→21:01)
[2019-11-03] MEDS: Ibuprofen 400 MG TAB PO PRN (05:40)
[2019-11-03] MEDS: Fluticasone Propionate Nasal Spray 16 gm Bottle NASAL PRN (09:11)
[2019-11-03] MEDS: Lisinopril 20 MG TAB PO SCH (09:12)
[2019-11-03] MEDS: Carbidopa/Levodopa 25-100 mg Tablet PO SCH ×3 (09:14→21:01)
[2019-11-03] MEDS: Aspirin 81 mg Enteric Coated Tablet PO SCH ×2 (09:14→21:01)
[2019-11-03] MEDS: Polyethylene Glycol 3350 17 GM Packet PO SCH (09:14)
[2019-11-03] MEDS: Melatonin 3 MG TAB PO PRN (21:01)
[2019-11-03] MEDS: metFORMIN 500 MG TAB PO SCH (21:01)
[2019-11-04] MEDS: traMADol HCl 50 MG TAB PO PRN ×2 (04:50→21:10)
[2019-11-04] MEDS: Ondansetron ODT 4 MG TAB PO PRN (07:29)
[2019-11-04] MEDS: Polyethylene Glycol 3350 17 GM Packet PO SCH (08:55)
[2019-11-04] MEDS: Fluticasone Propionate Nasal Spray 16 gm Bottle NASAL PRN (08:55)
[2019-11-04] MEDS: Lisinopril 20 MG TAB PO SCH (08:55)
[2019-11-04] MEDS: Aspirin 81 mg Enteric Coated Tablet PO SCH ×2 (08:55→21:11)
[2019-11-04] MEDS: Carbidopa/Levodopa 25-100 mg Tablet PO SCH ×3 (08:56→21:11)
--- NOTE | 2019-11-04 11:28 | PRG ---
DATE OF SERVICE: 11/04/2019 SUBJECTIVE: The patient said she is doing all right. This morning when therapy got her up, she got nauseated and had an episode of vomiting. This has settled and she seemed like she is feeling better. OBJECTIVE: GENERAL: The patient is sitting up in a geriatric chair. She is alert. VITAL SIGNS: Her temperature last evening was 98.5, pulse 90, respirations 16, O2 saturation 95%, blood pressure was 150/63. Vital signs for this morning show temperature 95.6, pulse 71, O2 saturation 97% on room air, and blood pressure 145/67. LUNGS: Clear. HEART: Regular rate. EXTREMITIES: Right leg is in a knee immobilizer. There is no effusion present. LABORATORY DATA: Her FBS this morning is pending, yesterday was 140. ASSESSMENT: 1. Generalized weakness. a. Presently nonambulatory. b. Following a fall with a fracture of the right lateral tibial plateau. c. No weightbearing on the right leg. 2. Closed, minimally displaced fracture of the right lateral tibial plateau. a. Secondary to a mechanical fall on 10/28/2019. b. Managed with a knee immobilizer. No weightbearing. 3. History of cerebrovascular accident. a. Leaving the patient with a left hemiparalysis with contracture of the left upper extremity. b. Requires assistance with all her ADLs. 4. Parkinson disease. 5. Hypertension. 6. Diabetes type 2. 7. Bronchitis, resolved. 8. Constipation. PLAN: This morning, the patient had an episode probably of nausea and dizziness when she got up, this may have been an episode of benign positional vertigo. She has been given Zofran and this seems to all be passing. She completes her antibiotics of Levaquin for the bronchitis today. We will continue her PT and OT. Job ID: [id number] [facility]
[2019-11-04] MEDS: Melatonin 3 MG TAB PO PRN (21:10)
[2019-11-04] MEDS: metFORMIN 500 MG TAB PO SCH (21:11)
[2019-11-05] MEDS: Senokot S 8.6-50 MG TAB PO PRN (09:10)
[2019-11-05] MEDS: Fluticasone Propionate Nasal Spray 16 gm Bottle NASAL PRN (09:10)
[2019-11-05] MEDS: Polyethylene Glycol 3350 17 GM Packet PO SCH (09:10)
[2019-11-05] MEDS: Aspirin 81 mg Enteric Coated Tablet PO SCH ×2 (09:11→21:42)
[2019-11-05] MEDS: Carbidopa/Levodopa 25-100 mg Tablet PO SCH ×3 (09:11→21:42)
[2019-11-05] MEDS: Lisinopril 20 MG TAB PO SCH (09:11)
[2019-11-05] MEDS: Ibuprofen 400 MG TAB PO PRN (21:41)
[2019-11-05] MEDS: Melatonin 3 MG TAB PO PRN (21:42)
[2019-11-05] MEDS: metFORMIN 500 MG TAB PO SCH (21:42)
[2019-11-06] MEDS: Ondansetron ODT 4 MG TAB PO PRN (07:42)
--- NOTE | 2019-11-06 09:16 | PRG ---
DATE OF SERVICE: 11/06/2019 SUBJECTIVE: The patient has been doing all right. This morning, she is a little nauseated and has been given some Zofran. She said her legs doing okay, which she gets up and moves around more. She is a little sore. OBJECTIVE: GENERAL: The patient is alert, talkative, appears comfortable, and in no distress. VITAL SIGNS: Her temperature is 97.5, pulse 63, respirations 16, O2 saturation 96% on room air, and blood pressure 139/66. LUNGS: Clear. HEART: Regular rate. EXTREMITIES: Right leg is in a knee immobilizer. There is no effusion. NEUROLOGIC: The patient has a left hemiparalysis with contracture of the left upper extremity. ASSESSMENT: 1. Generalized weakness. a. Presently nonambulatory. b. Following a fall with a fracture of the right lateral tibial plateau. c. Nonweightbearing on the right leg. Has left hemiparalysis. 2. Closed, minimally displaced fracture of the right lateral tibial plateau. a. Secondary to mechanical fall on 10/28/2019. b. Managed with the knee immobilizer. Presently, no weightbearing. 3. History of a CVA. a. Leaving the patient with left hemiparalysis with contracture of the left upper extremity. b. Requires assistance with all of her ADLs. 4. Parkinson disease. 5. Hypertension. 6. Diabetes, type 2. 7. Constipation, controlled. PLAN: Continue present care. Continue PT and OT. Job ID: [id number] [facility]
[2019-11-06] MEDS: Aspirin 81 mg Enteric Coated Tablet PO SCH ×2 (09:29→20:37)
[2019-11-06] MEDS: Lisinopril 20 MG TAB PO SCH (09:29)
[2019-11-06] MEDS: Carbidopa/Levodopa 25-100 mg Tablet PO SCH ×3 (09:29→20:37)
[2019-11-06] MEDS: Polyethylene Glycol 3350 17 GM Packet PO SCH (09:29)
[2019-11-06] MEDS: Ibuprofen 400 MG TAB PO PRN (16:25)
[2019-11-06] MEDS: traMADol HCl 50 MG TAB PO PRN (17:32)
[2019-11-06] MEDS: metFORMIN 500 MG TAB PO SCH (20:37)
--- NOTE | 2019-11-07 09:01 | PRG ---
DATE OF SERVICE: 11/07/2019 SUBJECTIVE: The patient says she feels better today. She did not have the nausea this morning. OBJECTIVE: GENERAL: The patient is alert, appears comfortable, in no distress. She is very talkative. VITAL SIGNS: Show a temperature 97.1, pulse 77, respirations 16, O2 saturation 97% on room air, and blood pressure 152/67. LUNGS: Clear. HEART: Regular rate. EXTREMITIES: No edema. The patient has knee immobilizer on the right leg. LABORATORY DATA: FBS yesterday morning was 148. ASSESSMENT: 1. Generalized weakness. a. Presently nonambulatory. b. Following a fall with a fracture of the right lateral tibial plateau. c. Nonweightbearing on the right leg. Has left hemiparalysis. 2. Closed, minimally displaced fracture of the right lateral tibial plateau. a. Secondary to a mechanical fall on 10/28. b. Managed with a knee immobilizer and no weightbearing. 3. History of cerebrovascular accident. a. Leaving the patient with a left hemiparalysis with contracture of the left upper extremity. b. Requires assistance with all of her ADLs. 4. Parkinson disease. 5. Hypertension. 6. Diabetes type 2. 7. Constipation, controlled. PLAN: Continue present care. Continue PT and OT. Job ID: [id number] [facility]
[2019-11-07] MEDS: Lisinopril 20 MG TAB PO SCH (09:15)
[2019-11-07] MEDS: Carbidopa/Levodopa 25-100 mg Tablet PO SCH ×3 (09:15→21:01)
[2019-11-07] MEDS: Polyethylene Glycol 3350 17 GM Packet PO SCH (09:15)
[2019-11-07] MEDS: Aspirin 81 mg Enteric Coated Tablet PO SCH ×2 (09:16→21:01)
[2019-11-07 14:02] VITALS: BMI 21.9
[2019-11-07] MEDS: Acetaminophen 325 MG TAB PO PRN (17:49)
[2019-11-07] MEDS: metFORMIN 500 MG TAB PO SCH (21:01)
[2019-11-07] MEDS: Melatonin 3 MG TAB PO PRN (21:01)
[2019-11-08] MEDS: Lisinopril 20 MG TAB PO SCH (08:57)
[2019-11-08] MEDS: Polyethylene Glycol 3350 17 GM Packet PO SCH (08:57)
[2019-11-08] MEDS: Carbidopa/Levodopa 25-100 mg Tablet PO SCH ×3 (08:58→20:45)
[2019-11-08] MEDS: Acetaminophen 325 MG TAB PO PRN (08:58)
[2019-11-08] MEDS: Aspirin 81 mg Enteric Coated Tablet PO SCH ×2 (08:58→20:45)
[2019-11-08] MEDS: Senokot S 8.6-50 MG TAB PO PRN (08:58)
--- NOTE | 2019-11-08 11:25 | PRG ---
DATE OF SERVICE: 11/08/2019 SUBJECTIVE: The patient says she is feeling better today. She is up in her geriatric chair. She has had no nausea. Her right knee remains in a knee immobilizer. OBJECTIVE: GENERAL: The patient looks comfortable, appears in no distress. VITAL SIGNS: Show a temperature of 96.8, pulse 89, respirations 20, O2 saturation 97% on room air, blood pressure 171/73, last evening was 129/63. Most of her readings are normal. LUNGS: Clear. HEART: Regular rate. EXTREMITIES: Right leg is in a knee immobilizer. NEUROLOGIC: Alert, talkative. The patient has a left hemiparalysis with contracture of the left upper extremity. Her FBS this morning was 151. ASSESSMENT: 1. Generalized weakness. a. Presently nonambulatory. b. Following a fall with a fracture of the right lateral tibial plateau. c. Nonweightbearing on the right leg and has a left hemiparalysis. 2. Closed minimally displaced fracture of the right lateral tibial plateau. a. Secondary to mechanical fall on 10/28. b. Managed with a knee immobilizer. No weightbearing. 3. History of cerebral vascular accident. a. Left the patient with a left hemiparalysis with contractures of the left upper extremity. b. Requires assistance of all her ADLs. 4. Parkinson disease. 5. Diabetes. 6. Hypertension. 7. Constipation, controlled. PLAN: Continue present care. Continue PT and OT. Job ID: [id number] [facility]D
[2019-11-08] MEDS: Ibuprofen 400 MG TAB PO PRN (20:45)
[2019-11-08] MEDS: metFORMIN 500 MG TAB PO SCH (20:45)
[2019-11-09] MEDS: Aspirin 81 mg Enteric Coated Tablet PO SCH ×2 (08:25→20:26)
[2019-11-09] MEDS: Lisinopril 20 MG TAB PO SCH (08:26)
[2019-11-09] MEDS: Polyethylene Glycol 3350 17 GM Packet PO SCH (08:26)
[2019-11-09] MEDS: Carbidopa/Levodopa 25-100 mg Tablet PO SCH ×3 (08:26→20:26)
[2019-11-09] MEDS: Ibuprofen 400 MG TAB PO PRN (15:00)
[2019-11-09] MEDS: Acetaminophen 325 MG TAB PO PRN (15:39)
[2019-11-09] MEDS: metFORMIN 500 MG TAB PO SCH (20:26)
[2019-11-09] MEDS: Melatonin 3 MG TAB PO PRN (20:28)
[2019-11-10] MEDS: Polyethylene Glycol 3350 17 GM Packet PO SCH (08:58)
[2019-11-10] MEDS: Aspirin 81 mg Enteric Coated Tablet PO SCH ×2 (08:58→20:11)
[2019-11-10] MEDS: Lisinopril 20 MG TAB PO SCH (08:58)
[2019-11-10] MEDS: Carbidopa/Levodopa 25-100 mg Tablet PO SCH ×3 (08:59→20:11)
[2019-11-10] MEDS: metFORMIN 500 MG TAB PO SCH (20:11)
[2019-11-10] MEDS: Melatonin 3 MG TAB PO PRN (20:11)
[2019-11-11] MEDS: Carbidopa/Levodopa 25-100 mg Tablet PO SCH ×3 (09:18→20:14)
[2019-11-11] MEDS: Polyethylene Glycol 3350 17 GM Packet PO SCH (09:18)
[2019-11-11] MEDS: Lisinopril 20 MG TAB PO SCH (09:18)
[2019-11-11] MEDS: Aspirin 81 mg Enteric Coated Tablet PO SCH ×2 (09:18→20:14)
--- NOTE | 2019-11-11 10:37 | PRG ---
DATE OF SERVICE: 11/11/2019 SUBJECTIVE: The patient said she is doing all right this morning. A couple of days ago, she had a lot of pain in the right leg, but that settled. OBJECTIVE: GENERAL: The patient is lying in bed, alert, talkative, appears comfortable, and in no distress. VITAL SIGNS: Her temp is 98.8, pulse 85, respirations 18, O2 saturation 95% on room air, and blood pressure 129/59. LUNGS: Clear. HEART: Regular rate. EXTREMITIES: No edema. Right leg in a knee immobilizer. LABORATORY DATA: FBS this morning 152. ASSESSMENT: 1. Generalized weakness. a. Presently nonambulatory. b. Following a fall with a fracture of the right lateral tibial plateau. c. Nonweightbearing on the right leg and has a left hemiparalysis. 2. Closed minimally displaced fracture of the right lateral tibial plateau. a. Secondary to a fall on 10/28. b. Managed with knee immobilizer, no weightbearing. 3. History of cerebrovascular accident. a. Left the patient with a left hemiparalysis with contracture of the left upper extremity. b. Requires assistance with all her ADLs. 4. Parkinson disease. 5. Diabetes, type 2. a. Controlled. 6. Hypertension. 7. Constipation, controlled. PLAN: Continue present care. Continue PT and OT. Job ID: [id number] [facility]
[2019-11-11] MEDS: Ibuprofen 400 MG TAB PO PRN (13:48)
[2019-11-11] MEDS: Acetaminophen 325 MG TAB PO PRN (18:20)
[2019-11-11] MEDS: metFORMIN 500 MG TAB PO SCH (20:14)
[2019-11-11] MEDS: Melatonin 3 MG TAB PO PRN (20:15)
[2019-11-12] MEDS: Lisinopril 20 MG TAB PO SCH (07:54)
[2019-11-12] MEDS: Aspirin 81 mg Enteric Coated Tablet PO SCH ×2 (07:54→20:10)
[2019-11-12] MEDS: Carbidopa/Levodopa 25-100 mg Tablet PO SCH ×3 (07:54→20:10)
[2019-11-12] MEDS: Polyethylene Glycol 3350 17 GM Packet PO SCH (08:01)
--- NOTE | 2019-11-12 10:48 | PRG ---
DATE OF SERVICE: 11/12/2019 SUBJECTIVE: The patient says she is doing all right, but she wants to go home. She is cared for by her son and [id number] and thinks they will be able to resume her care. OBJECTIVE: GENERAL: The patient is alert, sitting up on the edge of the bed preparing to be moved to a Ros chair. She requires full assistance for the transfer. She appears comfortable, in no distress. VITAL SIGNS: Her temperature is 97.8, pulse 87, blood pressure 152/78, respirations 16, and O2 sat 90% on room air. LUNGS: Clear. HEART: Regular rate. LOWER EXTREMITIES: No edema. The patient has long leg knee immobilizer on the right. ASSESSMENT: 1. Generalized weakness. a. Presently nonambulatory. b. Following a fall with fracture of the right lateral tibial plateau. c. Nonweightbearing on the right leg and has a left hemiparalysis. 2. Closed minimally-displaced fracture of the right lateral tibial plateau. a. Secondary to a fall on 10/28. b. Managed with knee immobilizer and no weightbearing. 3. History of cerebrovascular accident. a. Has left the patient with a left hemiparalysis with contracture of the left upper extremity. b. Requires assistance with all her ADLs. 4. Parkinson disease. 5. Diabetes, type 2. a. Controlled. 6. Hypertension. 7. Constipation, controlled. PLAN: Continue PT and OT. I have told the patient that once her family feels able to reassume her care, we will then discharge her. Job ID: [id number] MTDD
[2019-11-12] MEDS: traMADol HCl 50 MG TAB PO PRN (19:16)
[2019-11-12] MEDS: metFORMIN 500 MG TAB PO SCH (20:10)
[2019-11-13] MEDS: Aspirin 81 mg Enteric Coated Tablet PO SCH ×2 (08:57→21:06)
[2019-11-13] MEDS: Polyethylene Glycol 3350 17 GM Packet PO SCH (08:57)
[2019-11-13] MEDS: Lisinopril 20 MG TAB PO SCH (08:57)
[2019-11-13] MEDS: Ibuprofen 400 MG TAB PO PRN ×2 (08:57→21:07)
[2019-11-13] MEDS: Carbidopa/Levodopa 25-100 mg Tablet PO SCH ×3 (08:57→21:06)
--- NOTE | 2019-11-13 12:29 | PRG ---
DATE OF SERVICE: 11/13/2019 SUBJECTIVE: The patient says she is feeling good this morning. Physical therapy has her up in a wheelchair. She is nonweightbearing on the right leg. Her left leg, they are using to pivot width, but it is very weak. She is pretty much max assist for any transfer. She did meet with her family and nurses yesterday and preparations are being made for her to be discharged on Monday. OBJECTIVE: GENERAL: The patient is alert, appears comfortable and in no distress. VITAL SIGNS: Her vital signs show a temperature 97.8, pulse 68, respirations 16 , O2 saturation 96% on room air, and blood pressure 137/61. LUNGS: Clear. HEART: Regular rate. NEUROLOGIC: Left hemiparesis with contractures of the left upper extremity. Right knee, there is no effusion. No redness. ASSESSMENT: 1. Generalized weakness. a. Presently nonambulatory. b. Following a fall with fracture of the right lateral tibial plateau. c. Nonweightbearing on the right. PT is working with her and she is able to pivot a little bit on the left as of 11/13. 2. Closed minimally-displaced fracture of right lateral tibial plateau. a. Secondary to a fall on 10/28. b. Managed with a knee immobilizer. No weightbearing. 3. History of cerebrovascular accident. a. Has left the patient with a left hemiparalysis with contracture of the left upper extremity. b. Requires assistance with all her ADLs. 4. Parkinson disease. 5. Diabetes, type 2. a. Controlled. 6. Hypertension, controlled. 7. Constipation, controlled. PLAN: Continue PT and OT. Plan to discharge to her home, where family will manage her on 11/18/2019. Job ID: [id number] [facility]
[2019-11-13] MEDS: metFORMIN 500 MG TAB PO SCH (21:06)
[2019-11-13] MEDS: Melatonin 3 MG TAB PO PRN (21:06)
[2019-11-14] MEDS: Aspirin 81 mg Enteric Coated Tablet PO SCH ×2 (08:59→21:48)
[2019-11-14] MEDS: Polyethylene Glycol 3350 17 GM Packet PO SCH (08:59)
[2019-11-14] MEDS: Carbidopa/Levodopa 25-100 mg Tablet PO SCH ×3 (08:59→21:48)
[2019-11-14] MEDS: Lisinopril 20 MG TAB PO SCH (08:59)
[2019-11-14] MEDS: traMADol HCl 50 MG TAB PO PRN (14:50)
[2019-11-14] MEDS: Ibuprofen 400 MG TAB PO PRN (21:48)
[2019-11-14] MEDS: Melatonin 3 MG TAB PO PRN (21:48)
[2019-11-14] MEDS: metFORMIN 500 MG TAB PO SCH (21:48)
[2019-11-15] MEDS: Lisinopril 20 MG TAB PO SCH (09:09)
[2019-11-15] MEDS: Polyethylene Glycol 3350 17 GM Packet PO SCH (09:09)
[2019-11-15] MEDS: Ibuprofen 400 MG TAB PO PRN ×2 (09:09→20:43)
[2019-11-15] MEDS: Carbidopa/Levodopa 25-100 mg Tablet PO SCH ×4 (09:09→20:43)
[2019-11-15] MEDS: Aspirin 81 mg Enteric Coated Tablet PO SCH ×2 (09:09→20:43)
--- NOTE | 2019-11-15 14:08 | PRG ---
DATE OF SERVICE: 11/15/2019 SUBJECTIVE: The patient says she is doing okay. She is just sore in her right leg. OBJECTIVE: GENERAL: The patient is lying in a Ros chair. She is alert, appears a little uncomfortable, but not in any acute distress. VITAL SIGNS: Show a temperature of 98, pulse 92, blood pressure 137/69, respirations 16, O2 saturation 97% on room air, and blood pressure 150/70. LUNGS: Clear. HEART: Regular rate. NEUROLOGIC: The patient alert and talkative. She has left hemiparesis and paralysis of the left upper extremity with contractures. She has a knee immobilizer on the right leg. FBS this morning 121. ASSESSMENT: 1. Generalized weakness. a. Presently nonambulatory. b. Following a fall with fracture of the right lateral tibial plateau. c. Nonweightbearing on the right. PT continues to work with her. She uses her left leg to help with transfer as of 11/15. 2. Closed minimally displaced fracture, right lateral tibial plateau. a. Secondary to a fall on 10/28, could be managed with knee immobilizer and no weightbearing. 3. History of cerebrovascular accident. a. Has left the patient with a left hemiparalysis and contracture of the left upper extremity. b. Requires assistance with all her ADLs. 4. Parkinson's disease. 5. Diabetes type 2. a. Controlled. 6. Hypertension, controlled. 7. Constipation, controlled. PLAN: Continue present care. Continue PT and OT. Anticipate discharge on Monday, 11/17. Job ID: [id number] [facility]
[2019-11-15] MEDS: metFORMIN 500 MG TAB PO SCH (20:43)
[2019-11-15] MEDS: Melatonin 3 MG TAB PO PRN (20:43)
[2019-11-16] MEDS: traMADol HCl 50 MG TAB PO PRN (05:10)
[2019-11-16] MEDS: Aspirin 81 mg Enteric Coated Tablet PO SCH ×2 (08:39→20:17)
[2019-11-16] MEDS: Lisinopril 20 MG TAB PO SCH (08:39)
[2019-11-16] MEDS: Carbidopa/Levodopa 25-100 mg Tablet PO SCH ×3 (08:39→20:18)
[2019-11-16] MEDS: Polyethylene Glycol 3350 17 GM Packet PO SCH (08:40)
[2019-11-16] MEDS: Acetaminophen 325 MG TAB PO PRN ×2 (14:24→20:18)
[2019-11-16] MEDS: Melatonin 3 MG TAB PO PRN (20:17)
[2019-11-16] MEDS: metFORMIN 500 MG TAB PO SCH (20:18)
[2019-11-17] MEDS: traMADol HCl 50 MG TAB PO PRN ×2 (01:52→16:02)
[2019-11-17] MEDS: Lisinopril 20 MG TAB PO SCH (08:46)
[2019-11-17] MEDS: Carbidopa/Levodopa 25-100 mg Tablet PO SCH ×3 (08:46→21:05)
[2019-11-17] MEDS: Aspirin 81 mg Enteric Coated Tablet PO SCH ×2 (08:46→21:05)
[2019-11-17] MEDS: Polyethylene Glycol 3350 17 GM Packet PO SCH (08:47)
[2019-11-17] MEDS: Ibuprofen 400 MG TAB PO PRN (21:05)
[2019-11-17] MEDS: metFORMIN 500 MG TAB PO SCH (21:05)
[2019-11-17] MEDS: Melatonin 3 MG TAB PO PRN (21:05)
[2019-11-18] MEDS: Lisinopril 20 MG TAB PO SCH (09:22)
[2019-11-18] MEDS: Carbidopa/Levodopa 25-100 mg Tablet PO SCH (09:22)
[2019-11-18] MEDS: Aspirin 81 mg Enteric Coated Tablet PO SCH (09:22)
[2019-11-18] MEDS: Ibuprofen 400 MG TAB PO PRN (09:22)
[2019-11-18] MEDS: Polyethylene Glycol 3350 17 GM Packet PO SCH (09:22)
[2019-11-18 09:45] VITALS: BP 123/60; TEMP 97.5
--- NOTE | 2019-11-18 10:19 | DIS ---
DATE OF ADMISSION: 10/29/2019 DATE OF DISCHARGE: 11/18/2019 FINAL DIAGNOSES: 1. Generalized weakness. a. Presently nonambulatory. b. Following a fall with a fracture of the right lateral tibial plateau on 10/28/2019. c. Nonweightbearing on the right. Complicated by a left hemipareses from a stroke. 2. Closed minimally displaced fracture of the right lateral tibial plateau. a. Secondary to a fall on 10/28. b. Managed with knee immobilizer and no weightbearing. 3. History of cerebrovascular accident. a. Has left the patient with left hemiparalysis with contracture of the left upper extremity. b. Requires assistance with all her ADLs. 4. Parkinson disease. 5. Diabetes type 2. a. Controlled. 6. Hypertension, controlled. 7. Constipation. SUMMARY: The patient is an 89-year-old white female, who has a history of Parkinson disease; diabetes type 2, that has been controlled; and hypertension. She has Parkinson disease. She also has had stroke that has left her with left-sided weakness and contractures of the left upper extremity. She is taken care of at home by her family and requires assistance with her ADLs. She has been able to walk a few little steps with the standby assistance prior to her fall. The patient had a fall on 10/28/2019 that resulted in a minimally displaced fracture of the right lateral tibial plateau. She was hospitalized at [facility] on 10/28. Orthopedic surgeon, Dr. Kevan Bowers recommended nonsurgical management. She was placed in a hinged knee brace with 20 degrees of flexion and nonweightbearing. Will follow up with him at 6 weeks post fall and fracture. The patient was transferred to [facility] on 10/29 for care and rehabilitation with instructions to wear the knee brace and no weightbearing on that right leg. She was continued on her routine medication. Her diabetes showed good control with her FBS running between 120 and 150, and her hemoglobin A1c of 6.4. The patient stayed in the knee immobilizer with 20 degrees of flexion. Physical Therapy worked with her with upper body strengthening, particularly of the right leg. Her left leg was extremely weak from the stroke. Gradually, she was able to bear a little weight on that side to assist with transfer, but typically was pretty much total transfer. Her condition was remained stable and she tolerates sitting up in a chair. Her pain was well controlled with ibuprofen and tramadol. The patient's condition stabilized and she had requested going home. Her family felt that they could manage her along with home health. The patient was discharged on 11/18/2019 under the care of her family and with home health. DISPOSITION: DIET: Regular diet, no added salt. ACTIVITY: Up in a chair as tolerated. No weightbearing on the right leg. The patient should remain in the knee immobilizer with 20 degrees of flexion. Home Health will work with her with PT and OT. MEDICATIONS: 1. Acetaminophen 325 mg two every 4 hours as needed. 2. Aspirin 81 mg daily. 3. Sinemet 25/100 one t.i.d. 4. Fluticasone two sprays in each nostrum daily as needed. 5. Ibuprofen 200 mg two every 8 hours as needed for pain. 6. Lisinopril 20 mg daily. 7. Melatonin 3 mg at bedtime as needed for sleep. 8. Metformin 500 mg at bedtime. 9. MiraLAX 17 g with 8 ounces of water daily. 10. Senokot-S 1 b.i.d. as needed. 11. Tramadol 50 mg every 6 hours as needed. FOLLOWUP: Home Health will see the patient and arrange for PT and OT. The patient should follow up with Dr. Bowers in 6 weeks after her fall and fracture that occurred on 10/28. The patient will be seen by myself in my office in 2 weeks with CBC and basic metabolic panel that can be drawn by home health. CODE STATUS: Full code. Job ID: [id number] [facility]
== END 2019-11-18 10:40 | disposition home health service (06) | DRG 560 ==
LOC: MADMS 19:18
PROVIDERS: ADMIT Family Medicine; ATTEND Family Medicine
DX: S82.141D Displaced bicondylar fracture of right tibia, subsequent encounter for closed fracture with routine healing (principal); I69.354 Hemiplegia and hemiparesis following cerebral infarction affecting left non-dominant side; G20 Parkinson's disease; I10 Essential (primary) hypertension; E11.9 Type 2 diabetes mellitus without complications; K59.00 Constipation, unspecified; F02.80 Dementia in other diseases classified elsewhere, unspecified severity, without behavioral disturbance, psychotic disturbance, mood disturbance, and anxiety; E78.00 Pure hypercholesterolemia, unspecified; Z90.49 Acquired absence of other specified parts of digestive tract; J40 Bronchitis, not specified as acute or chronic; Z90.710 Acquired absence of both cervix and uterus; Z90.721 Acquired absence of ovaries, unilateral; Z88.0 Allergy status to penicillin; Z88.8 Allergy status to other drugs, medicaments and biological substances; W18.39XD Other fall on same level, subsequent encounter; R11.2 Nausea with vomiting, unspecified
CPT/HCPCS: 36415; 36416; 80048; 85025; Q0162

== ENCOUNTER 2020-01-15 12:03 | Outpatient (CLI) | payer MEDICARE ==
[2020-01-15 12:29] LABS: Bilirubin Negative (Negative); Blood, Urine Trace (Negative); Clarity Cloudy (Clear); Glucose, Urine (Dipstick) Negative (Negative); Leukocyte Moderate (Negative); Nitrite Negative (Negative); Protein, Urine (Dipstick) Negative (Neg-Trace); Urobilinogen 0.2 mg/dL (Less than 2)
[2020-01-15 13:15] LABS: Bacteria/HPF Rare-Few HPF (None Seen); RBC/HPF 0-3 HPF (0-3); WBC/HPF 21-50 HPF (0-3); Yeast-Budding 3+ HPF (None Seen)
== END 2020-01-15 12:04 | disposition home or self-care (01) ==
LOC: MADLABBHPM 12:03
PROVIDERS: ATTEND Family Medicine
DX: N39.0 Urinary tract infection, site not specified (principal)
CPT/HCPCS: 81001; 87086

== ENCOUNTER 2020-07-28 16:17 | Emergency (ER) | payer MEDICARE ==
[2020-07-28] MEDS ORDERED: Acetaminophen 500 MG TAB ONE (16:51)
[2020-07-28] MEDS ORDERED: Acetaminophen/Codeine 30-300mg Tablet ONE (16:51)
--- NOTE | 2020-07-28 17:30 | CT ---
CT OF THE BRAIN WITHOUT CONTRAST 07/28/20 INDICATION: 89-year-old female with history of fall with head injury. COMPARISON: Prior CT of the brain dated 04/29/20. FINDINGS: There is generalized cerebral and cerebellar atrophy. No definite acute infarct, hemorrhage, or hydro cephalus is present. Septum pellucidum and third ventricle are midline. Mastoid air cells and paranas al sinuses appear clear. Skull is intact. IMPRESSION: No acute intracranial abnormality. POS: BH
--- NOTE | 2020-07-28 17:33 | RAD ---
Right forearm 2 views HISTORY: Fall. Injury. FINDINGS: There are prominent degenerative changes of the wrist and mild degenerative changes of the elbow. Radius and ulna are intact. No fractures are apparent. IMPRESSION : No acute osseous abnormalities are demonstrated.
--- NOTE | 2020-07-28 17:39 | RAD ---
XR Hip Rt 2-3 View History: Fall with injury Comparison: None. 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 Intertrochanteric nail right femur is similar. Obturator ring is intact. Impression: 1. No acute displaced fracture. 2. 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
--- NOTE | 2020-07-28 17:40 | RAD ---
XR Shoulder Lt 3 View STANDARD History: Fall with injury Comparison: None. Findings: Bones are demineralized. No acute displaced fracture. Demineralization limits evaluation fo r nondisplaced fracture. Impression: No acute displaced shoulder fracture.
== END 2020-07-28 19:05 | disposition home or self-care (01) ==
LOC: MADERS 16:17
DX: S00.93XA Contusion of unspecified part of head, initial encounter (principal); S70.01XA Contusion of right hip, initial encounter; S40.012A Contusion of left shoulder, initial encounter; S50.11XA Contusion of right forearm, initial encounter; G20 Parkinson's disease; I10 Essential (primary) hypertension; Z86.73 Personal history of transient ischemic attack (TIA), and cerebral infarction without residual deficits; Z79.82 Long term (current) use of aspirin; Z79.899 Other long term (current) drug therapy; W05.0XXA Fall from non-moving wheelchair, initial encounter
CPT/HCPCS: 70450

== ENCOUNTER 2020-12-03 13:10 | Outpatient (CLI) | payer MEDICARE ==
[2020-12-03 13:29] LABS: Bilirubin Negative (Negative); Blood, Urine Negative (Negative); Clarity Clear (Clear); Glucose, Urine (Dipstick) Negative (Negative); Ketone, Urine Negative (Negative); Leukocyte Negative (Negative); Nitrite Negative (Negative); Protein, Urine (Dipstick) Negative (Neg-Trace); Specific Gravity, Urine 1.015 (1.005-1.030); Urobilinogen 0.2 mg/dL (Less than 2); pH, Urine 5.5 (5.0-9.0)
[2020-12-03 13:37] LABS: Bacteria/HPF None Seen HPF (None Seen); RBC/HPF 0-3 HPF (0-3); WBC/HPF 0-3 HPF (0-3)
== END 2020-12-03 13:11 | disposition home or self-care (01) ==
LOC: MADLAB 13:10
PROVIDERS: ATTEND Family Medicine
DX: N39.0 Urinary tract infection, site not specified (principal)
CPT/HCPCS: 81001; 87086

== ENCOUNTER 2021-05-09 13:57 | Emergency (ER) | payer MEDICARE ==
[2021-05-09 14:59] LABS: Bilirubin Negative (Negative); Blood, Urine Trace (Negative); Clarity Clear (Clear); Glucose, Urine (Dipstick) >=1000 mg/dL (Negative); Ketone, Urine Trace mg/dL (Negative); Leukocyte Negative (Negative); Nitrite Negative (Negative); Protein, Urine (Dipstick) Negative (Neg-Trace); Specific Gravity, Urine 1.015 (1.005-1.030); Urobilinogen 0.2 mg/dL (Less than 2)
[2021-05-09 15:06] LABS: Bacteria/HPF 1+ HPF (None Seen); RBC/HPF 0-3 HPF (0-3); Squamous Epithelial 0-3 HPF (0-3); WBC/HPF 0-3 HPF (0-3)
[2021-05-09] MEDS ORDERED: Fluconazole 100 MG TAB ONE (16:03)
== END 2021-05-09 16:12 | disposition home or self-care (01) ==
LOC: MADERS 13:57
DX: B37.3 Candidiasis of vulva and vagina (principal); L03.317 Cellulitis of buttock; I10 Essential (primary) hypertension; G20 Parkinson's disease; Z86.73 Personal history of transient ischemic attack (TIA), and cerebral infarction without residual deficits; Z79.82 Long term (current) use of aspirin; Z79.899 Other long term (current) drug therapy
CPT/HCPCS: 51701; 81003; 81015; 87086

== ENCOUNTER 2021-07-09 16:03 | Emergency (ER) | payer MEDICARE ==
[2021-07-09 16:59] LABS: #Basophils 0.1 thou/uL (0.0-0.2); #Eosinphils 0.1 thou/uL (0.0-0.7); #Lymphocytes 2.2 thou/uL (1.20-3.40); #Monocytes 0.5 thou/uL (0.11-0.59); #Neutrophils 5.9 thou/uL (1.40-6.50); %Basophils 0.6 % (0.0-1.0); %Eosinophils 1.6 % (0.0-10.0); %Lymphocytes 24.8 % (21.0-51.0); %Monocytes 5.7 % (0.0-10.0); %Neutrophils 67.3 % (42.0-75.0); Mean Corpuscular HGB CONC 31.6 g/dL (32.0-36.0); Mean Corpuscular Volume 88.6 fL (78.0-98.0); Mean Platelet Volume 6.7 fL (7.4-10.4); Platelet Count 322 thou/uL (130-400); RBC Distribution Width 13.2 % (11.5-14.5); Red Blood Cell (RBC) Count 4.66 mill/uL (4.20-5.40); White Blood Cell (WBC) Count 8.8 thou/uL (4.8-10.8)
[2021-07-09 17:18] LABS: Base Excess-Venous 2.3 mmol/L (-2.0 to 3.0); Bicarbonate (HCO3v) 27.9 mmol/L (22.0-28.0); CO2 Tension (PvCO2) 45.8 mmHg (42.0-51.0); Calcium, Ionized 1.24 mmol/L (1.15-1.33); Chloride 104 mmol/L (98-107); Hemoglobin - Calc 14.9 g/dL (12.0-16.0); Potassium 4.6 mmol/L (3.5-5.1); Sodium 138 mmol/L (138-145); T. Carbon Dioxide 29.4 mmol/L (22.0-28.0); vO2 Saturation-calc 99.4 % (60.0-85.0)
[2021-07-09 17:19] LABS: ALT (SGPT) Less than 7 U/L (8-55); AST (SGOT) 10 U/L (5-34); Albumin 3.7 g/dL (3.4-4.8); Alkaline Phosphatase 109 U/L (40-110); Anion Gap 16 mmol/L (10-20); BUN (Urea Nitrogen) 17 mg/dL (9.8-20.1); Bilirubin, Total 0.6 mg/dL (0.2-1.2); Calc. Creatinine Clearance 0 mL/min (70-130); Calcium 9.8 mg/dL (7.8-10.44); Carbon Dioxide 25 mmol/L (23-31); Chloride 100 mmol/L (98-107); Globulin 3.5 g/dL (2.4-3.5); Glucose 464 mg/dL (83-110); Lipase 10 U/L (8-78); Potassium 4.5 mmol/L (3.5-5.1); Protein, Total 7.2 g/dL (5.8-8.1); Sodium 136 mmol/L (136-145)
[2021-07-09 17:20] LABS: CK (CPK) 49 U/L (29-168); CRP (Inflammatory) 0.64 mg/dL (= or < 0.5); Magnesium 1.6 mg/dL (1.6-2.6)
[2021-07-09 17:52] LABS: Bilirubin Negative (Negative); Blood, Urine Small (Negative); Glucose, Urine (Dipstick) >=1000 mg/dL (Negative); Ketone, Urine Negative (Negative); Leukocyte Trace (Negative); Nitrite Positive (Negative); Protein, Urine (Dipstick) Negative (Neg-Trace); Urobilinogen 0.2 mg/dL (Less than 2)
[2021-07-09 17:54] LABS: Clarity Cloudy (Clear); Specific Gravity, Urine 1.034 (1.002-1.036)
[2021-07-09 17:58] LABS: Bacteria/HPF 2+ HPF (None Seen); RBC/HPF 0-3 HPF (0-3); WBC/HPF 21-50 HPF (0-3)
[2021-07-09 17:59] LABS: Yeast-Budding 3+ HPF (None Seen); Yeast-Hyphae 1+ HPF (None Seen)
[2021-07-09] MEDS ORDERED: cefTRIAXone\\ROCEPHIN 1 GM VIAL ONE (18:11)
[2021-07-09] MEDS ORDERED: Sterile Water 10 ML ONE (18:12)
[2021-07-09 19:44] LABS: SARS-CoV-2 NAA Rapid Test Not Detected (NotDetected)
[2021-07-09 21:45] LABS: Amphetamine Not Detected (NotDetected); Barbiturates Screen Not Detected (NotDetected); Benzodiazepine Screen Not Detected (NotDetected); Cocaine Metabolite Screen Not Detected (NotDetected); Medtox Control Line Valid? VALID (VALID); Methadone Not Detected (NotDetected); Methamphetamine Not Detected (NotDetected); Opiate Screen Not Detected (NotDetected); Oxycodone Screen Not Detected (NotDetected); Phencyclidine (PCP) Not Detected (NotDetected); THC/Cannabinoid Screen Not Detected (NotDetected); Tricyclic Screen Not Detected (NotDetected)
== END 2021-07-09 22:48 | disposition short-term general hospital (02) ==
LOC: MADERS 16:03
DX: G93.40 Encephalopathy, unspecified (principal); N39.0 Urinary tract infection, site not specified; I10 Essential (primary) hypertension; G20 Parkinson's disease; Z20.822 Contact with and (suspected) exposure to COVID-19; Z86.73 Personal history of transient ischemic attack (TIA), and cerebral infarction without residual deficits; Z79.899 Other long term (current) drug therapy; Z79.84 Long term (current) use of oral hypoglycemic drugs; Z79.82 Long term (current) use of aspirin
CPT/HCPCS: 36415; 70450; 71045; 80053; 80306; 81003; 81015; 82330; 82550; 82803; 83605; 83690; 83735; 83880; 84443; 84484; 85025; 86140; 87040; 87077; 87086; 87186; 93005; 96365; J0696; J7030; U0002

== ENCOUNTER 2021-08-11 13:32 | Emergency (ER) | payer MEDICARE ==
[2021-08-11 15:26] LABS: ALT (SGPT) 9 U/L (8-55); AST (SGOT) 13 U/L (5-34); Alkaline Phosphatase 85 U/L (40-110); Anion Gap 14 mmol/L (10-20); BUN (Urea Nitrogen) 17 mg/dL (9.8-20.1); Bilirubin, Total 0.6 mg/dL (0.2-1.2); Calc. Creatinine Clearance 0 mL/min (70-130); Calcium 9.4 mg/dL (7.8-10.44); Carbon Dioxide 25 mmol/L (23-31); Chloride 106 mmol/L (98-107); Globulin 3.2 g/dL (2.4-3.5); Glucose 91 mg/dL (83-110); Protein, Total 7.2 g/dL (5.8-8.1); Sodium 141 mmol/L (136-145)
[2021-08-11 15:27] LABS: #Basophils 0.1 thou/uL (0.0-0.2); #Eosinphils 0.3 thou/uL (0.0-0.7); #Lymphocytes 2.4 thou/uL (1.20-3.40); #Monocytes 0.8 thou/uL (0.11-0.59); #Neutrophils 2.8 thou/uL (1.40-6.50); %Basophils 0.9 % (0.0-1.0); %Eosinophils 5.3 % (0.0-10.0); %Lymphocytes 37.5 % (21.0-51.0); %Monocytes 11.9 % (0.0-10.0); %Neutrophils 44.4 % (42.0-75.0); Mean Corpuscular HGB CONC 30.6 g/dL (32.0-36.0); Mean Corpuscular Hemoglobin 27.7 pg (27.0-31.0); Mean Corpuscular Volume 90.4 fL (78.0-98.0); Mean Platelet Volume 6.3 fL (7.4-10.4); Platelet Count 296 thou/uL (130-400); RBC Distribution Width 13.8 % (11.5-14.5); Red Blood Cell (RBC) Count 3.98 mill/uL (4.20-5.40); White Blood Cell (WBC) Count 6.3 thou/uL (4.8-10.8)
[2021-08-11 16:00] LABS: Bilirubin Negative (Negative); Blood, Urine Negative (Negative); Clarity Hazy (Clear); Glucose, Urine (Dipstick) Negative (Negative); Ketone, Urine Negative (Negative); Leukocyte Small (Negative); Nitrite Positive (Negative); Protein, Urine (Dipstick) Negative (Neg-Trace); Urobilinogen 0.2 mg/dL (Less than 2)
[2021-08-11 16:01] LABS: Bacteria/HPF 1+ HPF (None Seen); RBC/HPF 0-3 HPF (0-3); Squamous Epithelial 0-3 HPF (0-3); Yeast-Budding 1+ HPF (None Seen)
[2021-08-11] MEDS ORDERED: Sodium Chloride 0.9% 100 ML ONE (16:16)
[2021-08-11] MEDS ORDERED: cefTRIAXone\\ROCEPHIN 2 GM VIAL ONE (16:16)
[2021-08-11 17:45] LABS: SARS-CoV-2 NAA Rapid Test Not Detected (NotDetected)
== END 2021-08-11 18:06 | disposition home or self-care (01) ==
LOC: MADERS 13:32
DX: J06.9 Acute upper respiratory infection, unspecified (principal); N30.00 Acute cystitis without hematuria; Z20.822 Contact with and (suspected) exposure to COVID-19; I10 Essential (primary) hypertension; G20 Parkinson's disease; Z86.73 Personal history of transient ischemic attack (TIA), and cerebral infarction without residual deficits; Z79.899 Other long term (current) drug therapy; Z79.82 Long term (current) use of aspirin
CPT/HCPCS: 71045; 80053; 83605; 85025; 87040; 87086; U0002; 36415; 51701; 81003; 81015; 87077; 87186; 96365; 96366; J0696; J3490

== ENCOUNTER 2021-10-15 10:29 | Outpatient (CLI) | payer MEDICARE ==
[2021-10-15 10:51] LABS: #Basophils 0.1 thou/uL (0.0-0.2); #Eosinphils 0.2 thou/uL (0.0-0.7); #Lymphocytes 1.6 thou/uL (1.20-3.40); #Monocytes 0.3 thou/uL (0.11-0.59); %Basophils 1.2 % (0.0-1.0); %Lymphocytes 31.3 % (21.0-51.0); %Monocytes 6.4 % (0.0-10.0); %Neutrophils 58.1 % (42.0-75.0); Hemoglobin 12.6 g/dL (12.0-16.0); Mean Corpuscular HGB CONC 31.1 g/dL (32.0-36.0); Mean Corpuscular Hemoglobin 27.3 pg (27.0-31.0); Mean Corpuscular Volume 87.9 fL (78.0-98.0); Mean Platelet Volume 6.7 fL (7.4-10.4); Platelet Count 280 thou/uL (130-400); RBC Distribution Width 12.1 % (11.5-14.5); Red Blood Cell (RBC) Count 4.61 mill/uL (4.20-5.40); White Blood Cell (WBC) Count 5.2 thou/uL (4.8-10.8)
[2021-10-15 11:02] LABS: ALT (SGPT) 18 U/L (8-55); AST (SGOT) 13 U/L (5-34); Albumin 4.4 g/dL (3.4-4.8); Alkaline Phosphatase 76 U/L (40-110); Anion Gap 18 mmol/L (10-20); BUN (Urea Nitrogen) 22 mg/dL (9.8-20.1); Bilirubin, Total 0.7 mg/dL (0.2-1.2); Calc. Creatinine Clearance 0 mL/min (70-130); Calcium 9.6 mg/dL (7.8-10.44); Carbon Dioxide 25 mmol/L (23-31); Cardiac Risk 3.2 (Less than 4.5); Chloride 105 mmol/L (98-107); Cholesterol 205 mg/dl (< 200 Desired); Glucose 133 mg/dL (83-110); HDL Cholesterol 64 mg/dL (>60 Neg Risk); LDL Cholesterol, Calculated 119 mg/dL; Potassium 4.7 mmol/L (3.5-5.1); Protein, Total 7.4 g/dL (5.8-8.1); Sodium 143 mmol/L (136-145); Triglycerides 111 mg/dL (Less than 150)
[2021-10-15 16:50] LABS: Hemoglobin A1c 6.5 % (4.0-6.0)
== END 2021-10-15 10:30 | disposition home or self-care (01) ==
LOC: MADLAB 10:29
PROVIDERS: ATTEND Family Medicine
DX: I10 Essential (primary) hypertension (principal); E11.9 Type 2 diabetes mellitus without complications
CPT/HCPCS: 80053; 80061; 83036; 84443; 85025

== ENCOUNTER 2022-03-26 10:56 | Emergency (ER) | payer MEDICARE ==
[2022-03-26 12:40] LABS: #Basophils 0.1 thou/uL (0.0-0.2); #Eosinphils 0.1 thou/uL (0.0-0.7); #Lymphocytes 2.2 thou/uL (1.20-3.40); #Monocytes 0.5 thou/uL (0.11-0.59); #Neutrophils 5.1 thou/uL (1.40-6.50); %Basophils 0.7 % (0.0-1.0); %Eosinophils 1.8 % (0.0-10.0); %Lymphocytes 27.5 % (21.0-51.0); %Monocytes 6.3 % (0.0-10.0); %Neutrophils 63.8 % (42.0-75.0); Hemoglobin 10.3 g/dL (12.0-16.0); Mean Corpuscular HGB CONC 32.7 g/dL (32.0-36.0); Mean Corpuscular Hemoglobin 26.2 pg (27.0-31.0); Mean Corpuscular Volume 80.2 fL (78.0-98.0); Mean Platelet Volume 7.4 fL (7.4-10.4); Platelet Count 266 thou/uL (130-400); RBC Distribution Width 12.6 % (11.5-14.5); Red Blood Cell (RBC) Count 3.94 mill/uL (4.20-5.40); White Blood Cell (WBC) Count 7.9 thou/uL (4.8-10.8)
[2022-03-26 12:52] LABS: ALT (SGPT) 7 U/L (8-55); AST (SGOT) 10 U/L (5-34); Albumin 3.7 g/dL (3.4-4.8); Alkaline Phosphatase 88 U/L (40-110); Anion Gap 16 mmol/L (10-20); BUN (Urea Nitrogen) 17 mg/dL (9.8-20.1); Bilirubin, Total 0.8 mg/dL (0.2-1.2); Calc. Creatinine Clearance 0 mL/min (70-130); Calcium 8.9 mg/dL (7.8-10.44); Carbon Dioxide 26 mmol/L (23-31); Estimated GFR 77; Globulin 2.7 g/dL (2.4-3.5); Glucose 127 mg/dL (83-110); Lipase 8 U/L (8-78); Protein, Total 6.4 g/dL (5.8-8.1)
[2022-03-26 12:54] LABS: Bilirubin Negative (Negative); Blood, Urine Negative (Negative); Clarity Slightly Cloudy (Clear); Glucose, Urine (Dipstick) Negative (Negative); Ketone, Urine Negative (Negative); Leukocyte Small (Negative); Nitrite Negative (Negative); Protein, Urine (Dipstick) Negative (Neg-Trace); Specific Gravity, Urine 1.015 (1.005-1.030)
[2022-03-26 12:58] LABS: Chloride 104 mmol/L (98-107); Potassium 4.6 mmol/L (3.5-5.1); Sodium 141 mmol/L (136-145)
[2022-03-26 13:00] LABS: RBC/HPF 0-3 HPF (0-3); WBC/HPF 21-50 HPF (0-3)
[2022-03-26 13:01] LABS: Bacteria/HPF 1+ HPF (None Seen); Mucous/LPF 1+ LPF (<2+); Yeast-Budding 2+ HPF (None Seen)
== END 2022-03-26 14:30 | disposition home or self-care (01) ==
LOC: MADERS 10:56
DX: N30.00 Acute cystitis without hematuria (principal); B37.9 Candidiasis, unspecified; I10 Essential (primary) hypertension; E11.9 Type 2 diabetes mellitus without complications; G20 Parkinson's disease; Z86.73 Personal history of transient ischemic attack (TIA), and cerebral infarction without residual deficits; Z79.82 Long term (current) use of aspirin; Z79.84 Long term (current) use of oral hypoglycemic drugs; Z79.899 Other long term (current) drug therapy
CPT/HCPCS: 36415; 36416; 71045; 74176; 80053; 81003; 81015; 83690; 85025; 87086

== ENCOUNTER 2022-03-31 12:43 | Inpatient (IN) | payer MEDICARE ==
[2022-03-31 13:20] LABS: #Lymphocytes 1.5 thou/uL (1.20-3.40); #Monocytes 0.8 thou/uL (0.11-0.59); %Basophils 0.5 % (0.0-1.0); %Eosinophils 0.2 % (0.0-10.0); %Lymphocytes 15.8 % (21.0-51.0); %Monocytes 8.4 % (0.0-10.0); %Neutrophils 75.2 % (42.0-75.0); Hemoglobin 9.7 g/dL (12.0-16.0); Mean Corpuscular HGB CONC 31.7 g/dL (32.0-36.0); Mean Corpuscular Hemoglobin 25.3 pg (27.0-31.0); Mean Platelet Volume 6.8 fL (7.4-10.4); Platelet Count 267 thou/uL (130-400); RBC Distribution Width 12.6 % (11.5-14.5); Red Blood Cell (RBC) Count 3.83 mill/uL (4.20-5.40); White Blood Cell (WBC) Count 9.2 thou/uL (4.8-10.8)
[2022-03-31 13:37] LABS: ALT (SGPT) Less than 7 U/L (8-55); AST (SGOT) 10 U/L (5-34); Albumin 3.6 g/dL (3.4-4.8); Alkaline Phosphatase 80 U/L (40-110); Anion Gap 14 mmol/L (10-20); BUN (Urea Nitrogen) 17 mg/dL (9.8-20.1); Bilirubin, Total 1.2 mg/dL (0.2-1.2); Calc. Creatinine Clearance 0 mL/min (70-130); Calcium 9.1 mg/dL (7.8-10.44); Carbon Dioxide 26 mmol/L (23-31); Chloride 103 mmol/L (98-107); Estimated GFR 69; Globulin 3.5 g/dL (2.4-3.5); Glucose 161 mg/dL (83-110); Magnesium 1.7 mg/dL (1.6-2.6); Protein, Total 7.1 g/dL (5.8-8.1); Sodium 139 mmol/L (136-145)
[2022-03-31] MEDS ORDERED: Sodium Chloride 0.9% 500 ML ONE ×2 (13:51→15:28)
[2022-03-31 13:52] LABS: Bilirubin Negative (Negative); Blood, Urine Negative (Negative); Glucose, Urine (Dipstick) Negative (Negative); Ketone, Urine Negative (Negative); Leukocyte Small (Negative); Nitrite Negative (Negative); Protein, Urine (Dipstick) 30 mg/dL (Neg-Trace); pH, Urine 5.5 (5.0-9.0)
[2022-03-31 13:55] LABS: Clarity Hazy (Clear)
[2022-03-31 13:57] LABS: Bacteria/HPF Rare-Few HPF (None Seen); RBC/HPF 0-3 HPF (0-3); Squamous Epithelial 0-3 HPF (0-3); Yeast-Budding 1+ HPF (None Seen)
[2022-03-31 14:45] LABS: SARS-CoV-2 NAA Rapid Test Not Detected (NotDetected)
[2022-03-31] MEDS ORDERED: cefTRIAXone\\ROCEPHIN 2 GM VIAL ONE (15:19)
[2022-03-31] MEDS ORDERED: Fluconazole 100 MG TAB ONE (15:19)
[2022-03-31] MEDS ORDERED: Sodium Chloride 0.9% 100 ML ONE (15:20)
[2022-03-31 17:05] VITALS: BMI 19.1
[2022-03-31] MEDS ORDERED: Polyethylene Glycol 3350 17 GM Packet PO PRN (17:35)
[2022-03-31] MEDS: cefTRIAXone\\ROCEPHIN 1 GM in Sodium Chloride 0.9% 100 ML IVPB SCH (18:11)
[2022-03-31] MEDS: Sodium Chloride 0.9% 1,000 ML IV SCH (18:33)
[2022-03-31] MEDS: metFORMIN 500 MG TAB PO SCH (20:46)
[2022-03-31] MEDS: Mirtazapine 15 MG TAB PO SCH (20:46)
[2022-03-31] MEDS: Acetaminophen 325 MG TAB PO PRN (21:02)
[2022-04-01 05:17] LABS: #Basophils 0.1 thou/uL (0.0-0.2); #Lymphocytes 1.5 thou/uL (1.20-3.40); #Monocytes 0.7 thou/uL (0.11-0.59); #Neutrophils 5.8 thou/uL (1.40-6.50); %Basophils 0.7 % (0.0-1.0); %Eosinophils 0.5 % (0.0-10.0); %Lymphocytes 17.9 % (21.0-51.0); %Monocytes 8.9 % (0.0-10.0); %Neutrophils 72.1 % (42.0-75.0); Hemoglobin 9.2 g/dL (12.0-16.0); Mean Corpuscular HGB CONC 32.8 g/dL (32.0-36.0); Mean Corpuscular Hemoglobin 25.8 pg (27.0-31.0); Mean Corpuscular Volume 78.8 fL (78.0-98.0); Mean Platelet Volume 8.1 fL (7.4-10.4); Platelet Count 242 thou/uL (130-400); RBC Distribution Width 12.5 % (11.5-14.5); Red Blood Cell (RBC) Count 3.55 mill/uL (4.20-5.40); White Blood Cell (WBC) Count 8.1 thou/uL (4.8-10.8)
[2022-04-01 05:34] LABS: Anion Gap 18 mmol/L (10-20); BUN (Urea Nitrogen) 16 mg/dL (9.8-20.1); Calc. Creatinine Clearance 41 mL/min (70-130); Calcium 8.6 mg/dL (7.8-10.44); Carbon Dioxide 19 mmol/L (23-31); Chloride 109 mmol/L (98-107); Estimated GFR 80; Glucose 124 mg/dL (83-110); Potassium 4.1 mmol/L (3.5-5.1); Sodium 142 mmol/L (136-145)
[2022-04-01] MEDS: Sodium Chloride 0.9% 1,000 ML IV SCH ×2 (07:28→13:29)
[2022-04-01] MEDS: Aspirin 81 mg Enteric Coated Tablet PO SCH (08:24)
[2022-04-01] MEDS: metFORMIN 500 MG TAB PO SCH ×2 (08:24→21:07)
[2022-04-01] MEDS: Lisinopril 20 MG TAB PO SCH (08:24)
[2022-04-01] MEDS: Fluconazole 100 MG TAB PO SCH (08:25)
[2022-04-01] MEDS: cefTRIAXone\\ROCEPHIN 1 GM in Sodium Chloride 0.9% 100 ML IVPB SCH (17:14)
[2022-04-01] MEDS: Acetaminophen 325 MG TAB PO PRN (17:15)
[2022-04-01] MEDS: Mirtazapine 15 MG TAB PO SCH (21:07)
[2022-04-02] MEDS: Sodium Chloride 0.9% 1,000 ML IV SCH (01:11)
[2022-04-02 05:19] LABS: #Eosinphils 0.1 thou/uL (0.0-0.7); #Lymphocytes 1.1 thou/uL (1.20-3.40); #Monocytes 0.4 thou/uL (0.11-0.59); #Neutrophils 5.3 thou/uL (1.40-6.50); %Basophils 0.6 % (0.0-1.0); %Eosinophils 0.8 % (0.0-10.0); %Neutrophils 76.7 % (42.0-75.0); Hemoglobin 8.3 g/dL (12.0-16.0); Mean Corpuscular HGB CONC 32.1 g/dL (32.0-36.0); Mean Corpuscular Hemoglobin 25.4 pg (27.0-31.0); Mean Corpuscular Volume 79.4 fL (78.0-98.0); Mean Platelet Volume 7.7 fL (7.4-10.4); Platelet Count 234 thou/uL (130-400); RBC Distribution Width 12.6 % (11.5-14.5); Red Blood Cell (RBC) Count 3.27 mill/uL (4.20-5.40); White Blood Cell (WBC) Count 6.9 thou/uL (4.8-10.8)
[2022-04-02 05:35] LABS: Anion Gap 15 mmol/L (10-20); BUN (Urea Nitrogen) 16 mg/dL (9.8-20.1); Calc. Creatinine Clearance 44 mL/min (70-130); Calcium 8.3 mg/dL (7.8-10.44); Carbon Dioxide 21 mmol/L (23-31); Chloride 112 mmol/L (98-107); Estimated GFR 83; Glucose 116 mg/dL (83-110); Potassium 3.9 mmol/L (3.5-5.1); Sodium 144 mmol/L (136-145)
[2022-04-02] MEDS: Lisinopril 20 MG TAB PO SCH (08:33)
[2022-04-02] MEDS: metFORMIN 500 MG TAB PO SCH ×2 (08:33→21:01)
[2022-04-02] MEDS: Fluconazole 100 MG TAB PO SCH (08:34)
[2022-04-02] MEDS: Acetaminophen 325 MG TAB PO PRN ×2 (08:34→21:02)
[2022-04-02] MEDS ORDERED: Aspirin Chewable 81 MG TAB PO SCH (10:00)
[2022-04-02] MEDS: Aspirin 81 mg Enteric Coated Tablet PO SCH (10:10)
[2022-04-02] MEDS: cefTRIAXone\\ROCEPHIN 1 GM in Sodium Chloride 0.9% 100 ML IVPB SCH (17:07)
[2022-04-02] MEDS: Mirtazapine 15 MG TAB PO SCH (21:01)
[2022-04-03] MEDS: Sodium Chloride 0.9% 1,000 ML IV SCH (03:00)
[2022-04-03] MEDS: metFORMIN 500 MG TAB PO SCH ×2 (08:29→22:24)
[2022-04-03] MEDS: Lisinopril 20 MG TAB PO SCH (08:29)
[2022-04-03] MEDS: Aspirin Chewable 81 MG TAB PO SCH (08:29)
[2022-04-03] MEDS: Fluconazole 100 MG TAB PO SCH (08:29)
[2022-04-03] MEDS: Acetaminophen 325 MG TAB PO PRN (20:00)
[2022-04-03] MEDS: Mirtazapine 15 MG TAB PO SCH (22:24)
[2022-04-03] MEDS: Carbidopa/Levodopa 25-100 mg Tablet PO SCH (22:24)
[2022-04-04] MEDS: Carbidopa/Levodopa 25-100 mg Tablet PO SCH ×4 (00:01→21:43)
[2022-04-04] MEDS: metFORMIN 500 MG TAB PO SCH ×3 (00:02→21:43)
[2022-04-04] MEDS: Mirtazapine 15 MG TAB PO SCH ×2 (00:03→21:43)
[2022-04-04 02:53] LABS: Bilirubin Small (Negative); Blood, Urine Trace (Negative); Clarity Cloudy (Clear); Glucose, Urine (Dipstick) Negative (Negative); Ketone, Urine 80 mg/dL (Negative); Leukocyte Trace (Negative); Nitrite Negative (Negative); Protein, Urine (Dipstick) 30 mg/dL (Neg-Trace); Specific Gravity, Urine 1.025 (1.005-1.030); Urobilinogen 0.2 mg/dL (Less than 2)
[2022-04-04 02:54] LABS: Bacteria/HPF 2+ HPF (None Seen); RBC/HPF 0-3 HPF (0-3); Yeast-Budding 2+ HPF (None Seen)
[2022-04-04 05:24] LABS: #Eosinphils 0.2 thou/uL (0.0-0.7); #Lymphocytes 1.1 thou/uL (1.20-3.40); #Monocytes 0.5 thou/uL (0.11-0.59); #Neutrophils 3.6 thou/uL (1.40-6.50); %Basophils 0.6 % (0.0-1.0); %Eosinophils 3.3 % (0.0-10.0); %Lymphocytes 20.2 % (21.0-51.0); %Neutrophils 66.9 % (42.0-75.0); Hemoglobin 8.4 g/dL (12.0-16.0); Mean Corpuscular Hemoglobin 25.4 pg (27.0-31.0); Mean Corpuscular Volume 79.4 fL (78.0-98.0); Mean Platelet Volume 7.3 fL (7.4-10.4); Platelet Count 246 thou/uL (130-400); RBC Distribution Width 12.7 % (11.5-14.5); Red Blood Cell (RBC) Count 3.32 mill/uL (4.20-5.40); White Blood Cell (WBC) Count 5.4 thou/uL (4.8-10.8)
[2022-04-04 05:38] LABS: Anion Gap 13 mmol/L (10-20); BUN (Urea Nitrogen) 15 mg/dL (9.8-20.1); Calc. Creatinine Clearance 45 mL/min (70-130); Calcium 8.4 mg/dL (7.8-10.44); Carbon Dioxide 21 mmol/L (23-31); Chloride 114 mmol/L (98-107); Estimated GFR 84; Glucose 121 mg/dL (83-110); Potassium 3.5 mmol/L (3.5-5.1); Sodium 144 mmol/L (136-145)
[2022-04-04] MEDS: Aspirin Chewable 81 MG TAB PO SCH (08:34)
[2022-04-04] MEDS: Acetaminophen 325 MG TAB PO PRN ×2 (08:35→21:42)
[2022-04-04] MEDS: Lisinopril 20 MG TAB PO SCH (08:35)
[2022-04-04] MEDS: Fluconazole 100 MG TAB PO SCH (08:37)
[2022-04-05] MEDS: Aspirin Chewable 81 MG TAB PO SCH (09:56)
[2022-04-05] MEDS: Fluconazole 100 MG TAB PO SCH (09:57)
[2022-04-05] MEDS: Lisinopril 20 MG TAB PO SCH (09:57)
[2022-04-05] MEDS: Carbidopa/Levodopa 25-100 mg Tablet PO SCH ×3 (09:57→21:15)
[2022-04-05] MEDS: metFORMIN 500 MG TAB PO SCH ×2 (09:58→21:15)
[2022-04-05] MEDS: Acetaminophen 325 MG TAB PO PRN (17:53)
[2022-04-05] MEDS: Mirtazapine 15 MG TAB PO SCH (21:15)
[2022-04-06 07:10] VITALS: TEMP 98.1
[2022-04-06] MEDS: metFORMIN 500 MG TAB PO SCH (08:34)
[2022-04-06] MEDS: Aspirin Chewable 81 MG TAB PO SCH (08:34)
[2022-04-06] MEDS: Lisinopril 20 MG TAB PO SCH (08:34)
[2022-04-06] MEDS: Fluconazole 100 MG TAB PO SCH (08:35)
[2022-04-06] MEDS: Carbidopa/Levodopa 25-100 mg Tablet PO SCH (08:35)
[2022-04-06 08:36] VITALS: BP 178/77
== END 2022-04-06 12:44 | DRG 689 ==
LOC: MADERS 12:43 → MADMS 15:21 → UNDOADMIN 15:21
PROVIDERS: ADMIT Family Medicine; ATTEND Family Medicine
DX: N39.0 Urinary tract infection, site not specified (principal); G93.41 Metabolic encephalopathy; Z68.1 Body mass index [BMI] 19.9 or less, adult; I69.354 Hemiplegia and hemiparesis following cerebral infarction affecting left non-dominant side; E86.0 Dehydration; Z20.822 Contact with and (suspected) exposure to COVID-19; R63.0 Anorexia; I10 Essential (primary) hypertension; E11.9 Type 2 diabetes mellitus without complications; K21.9 Gastro-esophageal reflux disease without esophagitis; F01.50 Vascular dementia, unspecified severity, without behavioral disturbance, psychotic disturbance, mood disturbance, and anxiety; R53.1 Weakness; K59.00 Constipation, unspecified; R63.6 Underweight; G20 Parkinson's disease; G93.89 Other specified disorders of brain; Z90.710 Acquired absence of both cervix and uterus; Z90.722 Acquired absence of ovaries, bilateral; Z79.899 Other long term (current) drug therapy; Z79.84 Long term (current) use of oral hypoglycemic drugs; Z79.82 Long term (current) use of aspirin; Z88.1 Allergy status to other antibiotic agents; Z88.8 Allergy status to other drugs, medicaments and biological substances; Z88.0 Allergy status to penicillin; Z91.041 Radiographic dye allergy status
CPT/HCPCS: 36415; 36416; 51701; 70450; 71045; 80048; 80053; 81001; 81003; 81015; 83735; 83880; 84484; 85025; 87040; 87086; 93005; 96365; J0696; J3490; J7030; J7050; U0002

== ENCOUNTER 2022-04-06 11:18 | Inpatient (IN) | payer MEDICARE ==
[2022-04-06] MEDS ORDERED: Polyethylene Glycol 3350 17 GM Packet PO PRN (12:56)
[2022-04-06 13:01] VITALS: BMI 19.1
[2022-04-06] MEDS: Carbidopa/Levodopa 25-100 mg Tablet PO SCH ×2 (15:26→21:46)
[2022-04-06] MEDS: metFORMIN 500 MG TAB PO SCH (21:46)
[2022-04-06] MEDS: Acetaminophen 325 MG TAB PO PRN (21:46)
[2022-04-06] MEDS: Mirtazapine 15 MG TAB PO SCH (21:46)
[2022-04-07] MEDS: Carbidopa/Levodopa 25-100 mg Tablet PO SCH ×3 (08:50→21:27)
[2022-04-07] MEDS: Aspirin Chewable 81 MG TAB PO SCH (08:50)
[2022-04-07] MEDS: Lisinopril 10 MG TAB PO SCH (08:50)
[2022-04-07] MEDS: Fluconazole 100 MG TAB PO SCH (08:51)
[2022-04-07] MEDS: metFORMIN 500 MG TAB PO SCH ×2 (08:51→21:27)
[2022-04-07] MEDS ORDERED: Lisinopril 20 MG TAB PO SCH (09:00)
[2022-04-07] MEDS: Mirtazapine 15 MG TAB PO SCH (21:27)
[2022-04-07] MEDS: Acetaminophen 325 MG TAB PO PRN (21:27)
[2022-04-08] MEDS: Carbidopa/Levodopa 25-100 mg Tablet PO SCH ×3 (08:14→20:45)
[2022-04-08] MEDS: metFORMIN 500 MG TAB PO SCH ×2 (08:14→20:45)
[2022-04-08] MEDS: Lisinopril 10 MG TAB PO SCH (08:14)
[2022-04-08] MEDS: Fluconazole 100 MG TAB PO SCH (08:14)
[2022-04-08] MEDS: Aspirin Chewable 81 MG TAB PO SCH (08:14)
[2022-04-08] MEDS: Acetaminophen 325 MG TAB PO PRN ×2 (08:18→20:45)
[2022-04-08] MEDS: Mirtazapine 15 MG TAB PO SCH (20:45)
[2022-04-09] MEDS: Lisinopril 10 MG TAB PO SCH (08:25)
[2022-04-09] MEDS: Carbidopa/Levodopa 25-100 mg Tablet PO SCH ×3 (08:25→20:53)
[2022-04-09] MEDS: Aspirin Chewable 81 MG TAB PO SCH (08:25)
[2022-04-09] MEDS: metFORMIN 500 MG TAB PO SCH ×2 (08:25→20:54)
[2022-04-09] MEDS: Fluconazole 100 MG TAB PO SCH (08:25)
[2022-04-09] MEDS: Mirtazapine 15 MG TAB PO SCH (20:53)
[2022-04-09] MEDS: Acetaminophen 325 MG TAB PO PRN (20:54)
[2022-04-10] MEDS: Aspirin Chewable 81 MG TAB PO SCH (08:54)
[2022-04-10] MEDS: Fluconazole 100 MG TAB PO SCH (08:54)
[2022-04-10] MEDS: Carbidopa/Levodopa 25-100 mg Tablet PO SCH ×3 (08:54→21:20)
[2022-04-10] MEDS: metFORMIN 500 MG TAB PO SCH ×2 (08:54→21:20)
[2022-04-10] MEDS: Lisinopril 10 MG TAB PO SCH (08:54)
[2022-04-10] MEDS: Acetaminophen 325 MG TAB PO PRN ×2 (15:15→21:20)
[2022-04-10] MEDS: Mirtazapine 15 MG TAB PO SCH (21:20)
[2022-04-11] MEDS: Carbidopa/Levodopa 25-100 mg Tablet PO SCH ×3 (09:04→20:36)
[2022-04-11] MEDS: Fluconazole 100 MG TAB PO SCH (09:04)
[2022-04-11] MEDS: Lisinopril 10 MG TAB PO SCH (09:04)
[2022-04-11] MEDS: Aspirin Chewable 81 MG TAB PO SCH (09:04)
[2022-04-11] MEDS: metFORMIN 500 MG TAB PO SCH ×2 (09:05→20:36)
[2022-04-11] MEDS: Mirtazapine 15 MG TAB PO SCH (20:36)
[2022-04-11] MEDS: Acetaminophen 325 MG TAB PO PRN (20:36)
[2022-04-12] MEDS: Fluconazole 100 MG TAB PO SCH (08:36)
[2022-04-12] MEDS: metFORMIN 500 MG TAB PO SCH ×2 (08:36→22:02)
[2022-04-12] MEDS: Lisinopril 10 MG TAB PO SCH (08:36)
[2022-04-12] MEDS: Carbidopa/Levodopa 25-100 mg Tablet PO SCH ×3 (08:36→22:02)
[2022-04-12] MEDS: Aspirin Chewable 81 MG TAB PO SCH (08:36)
[2022-04-12] MEDS: Acetaminophen 325 MG TAB PO PRN ×2 (08:36→22:02)
[2022-04-12] MEDS: Mirtazapine 15 MG TAB PO SCH (22:02)
[2022-04-13] MEDS: Aspirin Chewable 81 MG TAB PO SCH (08:00)
[2022-04-13] MEDS: Fluconazole 100 MG TAB PO SCH (08:00)
[2022-04-13] MEDS: Carbidopa/Levodopa 25-100 mg Tablet PO SCH (08:00)
[2022-04-13] MEDS: metFORMIN 500 MG TAB PO SCH (08:00)
[2022-04-13] MEDS: Lisinopril 10 MG TAB PO SCH (08:00)
[2022-04-13 12:04] VITALS: BP 143/80; TEMP 97.5
== END 2022-04-13 14:18 | disposition home health service (06) | DRG 948 ==
LOC: MADMS 12:47
PROVIDERS: ADMIT Family Medicine; ATTEND Family Medicine
DX: R53.1 Weakness (principal); I69.954 Hemiplegia and hemiparesis following unspecified cerebrovascular disease affecting left non-dominant side; G20 Parkinson's disease; F02.80 Dementia in other diseases classified elsewhere, unspecified severity, without behavioral disturbance, psychotic disturbance, mood disturbance, and anxiety; E11.9 Type 2 diabetes mellitus without complications; I10 Essential (primary) hypertension; K21.9 Gastro-esophageal reflux disease without esophagitis; E86.0 Dehydration; R13.10 Dysphagia, unspecified; F01.50 Vascular dementia, unspecified severity, without behavioral disturbance, psychotic disturbance, mood disturbance, and anxiety; I69.991 Dysphagia following unspecified cerebrovascular disease; Z88.1 Allergy status to other antibiotic agents; Z88.8 Allergy status to other drugs, medicaments and biological substances
CPT/HCPCS: 36416; 71045; U0003; U0005